=== PATIENT | female | born 1965 | race Hispanic/Latino ===

== ENCOUNTER 2016-11-27 18:44 | Inpatient (IN) | payer MEDICAID, MEDICARE ==
[2016-11-27 18:45] VITALS: BMI 18.2
[2016-11-27] MEDS ORDERED: Sodium Chloride 0.9% 1,000 ML IV ONE (18:58)
[2016-11-27] MEDS ORDERED: Sodium Chloride 0.9% 500 ML IV ONE (18:58)
[2016-11-27] MEDS ORDERED: Iohexol 240 (50 ml) PO ONE (18:59)
--- NOTE | 2016-11-27 18:59 | C.PDOC ---
History Of Present Illness 51-year-old female, PMHx includes Alcohol Abuse, presents to the emergency department with complaints of abdominal pain. Patient has a Hx of chronic abdominal pain, but states she has been experiencing Epigastric and RUQ abdominal pain for the past four days. Pain is intermittent in nature and non- radiating. Associated symptoms include nausea and non-bilious/non-bloody vomiting, resulting in her coming to the ED for further evaluation. Patient denies fevers, chills, chest pain, shortness of breath, diarrhea, or any other associated symptoms. No other complaints at this time. Chief Complaint (Nursing): Abdominal Pain History Per: Patient History/Exam Limitations: no limitations Onset/Duration Of Symptoms: Days Current Symptoms Are (Timing): Still Present Severity: Moderate Past Medical History Reviewed: Historical Data, Nursing Documentation, Vital Signs Vital Signs: Last Vital Signs Temp Pulse 80 11/27/16 23:30 Resp 16 11/27/16 23:30 BP 130/80 11/27/16 23:30 Pulse Ox 97 11/27/16 23:30 - Medical History PMH: Anxiety, Bipolar Disorder, Depression, Diverticulitis, Gastritis, Gastrointestinal Ulcer, GERD, Kidney Stones, Pancreatitis, Chronic Pain (+ Chronic lower back pain) Denies: Diabetes, Hepatitis, HIV, HTN, Chronic Kidney Disease, Seizures, Sexually Transmitted Disease Surgical History: Endoscopy (Colonoscopy), Tonsillectomy - [facility] Procedures DETOXIFICATION SERVICES FOR SUBSTANCE ABUSE TREATMENT (10/17/16) EXCISION OF STOMACH, ENDO, DIAGN (06/01/16) GROUP ZOOLOGY TECHNICAL OFFICER FOR SUBSTANCE ABUSE TREATMENT, PSYCHOEDUCATION (10/17/16) GROUP PSYCHOTHERAPY (01/26/16) INDIV ZOOLOGY TECHNICAL OFFICER FOR SUBSTANCE ABUSE TREATMENT, PSYCHOEDUCATION (10/17/16) INDIV ZOOLOGY TECHNICAL OFFICER FOR SUBSTANCE ABUSE, COGNITIVE BEHAVIORAL (10/17/16) INDIV PSYCHOTHERAPY FOR SUBSTANCE ABUSE TREATMENT, SUPPORT (10/17/16) INDIV PSYCHOTHERAPY FOR SUBSTANCE ABUSE, PSYCHOEDUCATION (10/17/16) INDIVIDUAL PSYCHOTHERAPY, SUPPORTIVE (01/26/16) INJECT/INFUSE NEC (04/10/15) MEDS MGMT FOR SUBSTANCE ABUSE TREATMENT, METHADONE MAINT (01/26/16) Family History: States: Unknown Family Hx - Social History Hx Tobacco Use: Yes Hx Alcohol Use: Yes Hx Substance Use: Yes - Immunization History Hx Tetanus Toxoid Vaccination: Yes Hx Influenza Vaccination: Yes Hx Pneumococcal Vaccination: Yes Review Of Systems Except As Marked, All Systems Reviewed And Found Negative. Constitutional: Negative for: Fever, Chills Cardiovascular: Negative for: Chest Pain, Palpitations Respiratory: Negative for: Shortness of Breath Gastrointestinal: Positive for: Nausea, Vomiting, Abdominal Pain. Negative for : Diarrhea Genitourinary: Negative for: Dysuria, Frequency Musculoskeletal: Negative for: Back Pain Physical Exam - Physical Exam Appears: Non-toxic, No Acute Distress Skin: Warm, Dry, No Rash Head: Atraumatic, Normacephalic Eye(s): bilateral: Normal Inspection, PERRL Nose: Normal Oral Mucosa: Moist Neck: Normal ROM Chest: Symmetrical Cardiovascular: Rhythm Regular Respiratory: Normal Breath Sounds, No Accessory Muscle Use Gastrointestinal/Abdominal: Tenderness (RIGHT UPPER QUADRANT), No Guarding, No Rebound, Other (enlarged liver) Back: No CVA Tenderness Extremity: Normal ROM Neurological/Psych: Oriented x3, Normal Speech ED Course And Treatment - Laboratory Results Result Diagrams: 11/27/16 19:15 11/27/16 19:15 Disposition Discussed With : Corwin Nayak Doctor Will See Patient In The: Hospital Counseled Patient/Family Regarding: Diagnosis - Disposition Disposition: HOSPITALIZED Disposition Time: 23:46 Condition: STABLE - POA Present On Arrival: None - Clinical Impression Clinical Impression: Upper abdominal pain, Alcohol abuse, Pancreatitis - Scribe Statement The provider has reviewed the documentation as recorded by the Kit Peck All medical record entries made by the Hebertibnahid were at my direction and personally dictated by me. I have reviewed the chart and agree that the record accurately reflects my personal performance of the history, physical exam, medical decision making, and the department course for this patient. I have also personally directed, reviewed, and agree with the discharge instructions and disposition.
[2016-11-27] MEDS ORDERED: Sodium Chloride 0.9% 1,000 ML ONE (19:14)
[2016-11-27] MEDS ORDERED: Iohexol 240 (50 ml) ONE (19:14)
[2016-11-27 19:24] LABS: BASO # 0.1 K/uL (0.0-0.2); EOS # 0.1 K/uL (0.0-0.7); EOS % 1.5 % (0.0-4.0); HEMATOCRIT 38.9 % (34.0-47.0); LYMPH # 1.1 K/uL (1.0-4.3); MEAN CELL VOLUME 96.5 fL (81.0-99.0); MEAN CORPUSCULAR HEMOGLOBIN 32.7 pg (27.0-31.0); MEAN CORPUSCULAR HGB CONC 33.9 g/dL (33.0-37.0); MEAN PLATELET VOLUME 8.5 fL (7.2-11.7); MONO # 0.6 K/uL (0.0-0.8); MONO % 7.2 % (0.0-10.0); RED CELL DISTRIBUTION WIDTH 14.2 % (11.5-14.5); WHITE BLOOD COUNT 7.7 K/uL (4.8-10.8)
[2016-11-27 19:33] LABS: CHLORIDE 95 mmol/L (98-107); POTASSIUM 2.8 mmol/L (3.6-5.2); SODIUM 141 mmol/L (132-148)
[2016-11-27 19:35] LABS: ALKALINE PHOSPHATASE 107 U/L (38-126); AST/SGOT 237 U/L (14-36); BILIRUBIN,TOTAL 0.6 mg/dL (0.2-1.3); CARBON DIOXIDE 27 mmol/L (22-30); GFR AFRICAN-AMERICAN > 60
[2016-11-27 19:36] LABS: ALB/GLOB RATIO 1.2 (1.0-2.1); ALT/SGPT 181 U/L (9-52); BLOOD UREA NITROGEN 11 mg/dL (7-17); CALCIUM 8.8 mg/dl (8.6-10.4); GLUCOSE,RANDOM 120 mg/dL (65-105); TOTAL PROTEIN 7.9 g/dL (6.3-8.3)
[2016-11-27 19:37] LABS: ALCOHOL SERUM 49 mg/dl (0-10)
[2016-11-27] MEDS ORDERED: Iodixanol 320 MG/ML 100 ML BOTTLE IV ONE (21:46)
[2016-11-27 22:20] LABS: RBC URINE < 1 /hpf (0-3); URINE BILIRUBIN NEGATIVE (NEGATIVE); URINE BLOOD NEGATIVE (NEGATIVE); URINE COLOR Yellow (YELLOW); URINE GLUCOSE (UA) NORMAL (Normal); URINE KETONE TRACE mg/dL (NEGATIVE); URINE LEUKOCYTE ESTERASE NEG Leu/uL (Negative); URINE PROTEIN NEGATIVE (NEGATIVE); WBC URINE 1 /hpf (0-5)
[2016-11-28] MEDS ORDERED: Potassium Chloride 20 mEq 100 ML IVPB ONE ×2 (00:13→11:04)
[2016-11-28] MEDS ORDERED: Potassium Chloride 20 mEq ER Tab PO STA ×2 (00:16→11:04)
[2016-11-28] MEDS ORDERED: HYDROmorphone 1 mg/ml ISec IVP PRN (00:49)
--- NOTE | 2016-11-28 01:02 | CP.PCM.HP ---
History of Present Illness - History of Present Illness History of Present Illness: CC: " I can't stop throwing up and my stomach hurts". 51 year old female with PMHx of alcohol and heroin abuse, chronic pancreatitis, depression presents with 4 day history of abdominal pain, nausea and vomiting. Patient reports 10 out of 10 pain, which does not radiate. Pain has been progressive over the past 4 days and intermittent. Pain is not related to food intake. She reports she has not been able to eat or drink anything for the past 4 days. She took "Protonix, Reglan, Pepcid and pain pill", which were prescribed during September admission with no relief. Patient has history of multiple admissions for pancreatitis, alcohol and opioid abuse. Last admitted for heroin and alcohol detox on 10/17/2016. Admits she drank heavily with her son on the night prior to admission. She reports consuming half a gallon of vodka between her and her son. She does feel she has significantly decreased her alcohol, heroin and tobacco intake since last discharge, but relapsed when after receiving bad news from her son. Admits to recent visit to [facility] where she was observed overnight for abdominal pain. Patient denies depressed mood, but admits to anxiety and feeling "overwhelmed". Admits to intermittent diarrhea, and goosebumps. Last episode of diarrhea was yesterday. No additional episodes. Denies chest pain, palpitations, SOB, fevers, headaches, dysuria, hematuria, hematochezia, hemoptysis. Denies SI/HI. PMHx:alcohol and heroin abuse, chronic pancreatitis, depression. Medications: Protonix, Reglan, Pepcid and "pain pill. Allergies: NKDA Surgeries: Adenoids Family Hx: mother with BCA, ovarian CA, colon CA. Grandmother with [place], colon CA. PMD: none, last seen at [facility]. Present on Admission - Present on Admission Any Indicators Present on Admission: No Review of Systems - Constitutional Constitutional: Chills, Weight Loss. absent: Fatigue, Fever, Weakness - EENT Eyes: absent: Blurred Vision, Change in Vision Ears: absent: Dizziness Nose/Mouth/Throat: absent: Nasal Congestion, Sore Throat - Cardiovascular Cardiovascular: absent: Chest Pain, Diaphoresis, Dyspnea, Palpitations, Pedal Edema - Respiratory Respiratory: absent: Cough, Dyspnea, Hemoptysis, Wheezing - Gastrointestinal Gastrointestinal: Abdominal Pain, Bloating, Constipation, Diarrhea, Nausea, Vomiting. absent: Coffee Ground Emesis, Hematemesis, Hematochezia, Melena - Genitourinary Genitourinary: absent: Change in Urinary Stream, Difficulty Urinating, Dysuria, Flank Pain, Hematuria - Musculoskeletal Musculoskeletal: absent: Back Pain, Numbness, Tingling - Integumentary Integumentary: Dry Skin. absent: Pruritus, Rash, Wounds - Neurological Neurological: absent: Dizziness, Numbness, Syncope, Tingling, Weakness - Psychiatric Psychiatric: Anxiety. absent: Depression - Endocrine Endocrine: absent: Fatigue, Palpitations Past Patient History - Infectious Disease Hx of Infectious Diseases: None - Past Medical History & Family History Past Medical History?: Yes - Past Social History Smoking Status: Heavy Smoker > 10 Cigarettes Daily - CARDIAC Hx Hypertension: No - PULMONARY Hx Tuberculosis: No - NEUROLOGICAL Hx Seizures: No - HEENT Hx HEENT Problems: No - RENAL Hx Chronic Kidney Disease: No Hx Kidney Stones: Yes - ENDOCRINE/METABOLIC Hx Endocrine Disorders: No - HEMATOLOGICAL/ONCOLOGICAL Hx Human Immunodeficiency Virus (HIV): No - INTEGUMENTARY Hx Dermatological Problems: No - MUSCULOSKELETAL/RHEUMATOLOGICAL Hx Back Pain: Yes (fracture x2) Hx Falls: No - GASTROINTESTINAL Hx Diverticulitis: Yes Hx Gastritis: Yes Hx Pancreatitis: Yes - GENITOURINARY/GYNECOLOGICAL Hx Sexually Transmitted Disorders: No - PSYCHIATRIC Hx Anxiety: Yes Hx Bipolar Disorder: Yes Hx Depression: Yes Hx Substance Use: Yes - SURGICAL HISTORY Hx Tonsillectomy: Yes - ANESTHESIA Hx Anesthesia: Yes Hx Anesthesia Reactions: No Hx Malignant Hyperthermia: No Meds Allergies/Adverse Reactions: Allergies Allergy/AdvReac Type Severity Reaction Status Date / Time No Known Allergies Allergy Verified 11/27/16 18:49 Physical Exam - Constitutional Appears: No Acute Distress - Head Exam Head Exam: NORMAL INSPECTION, NORMOCEPHALIC - Eye Exam Eye Exam: EOMI, Normal appearance, PERRL. absent: Scleral icterus - ENT Exam ENT Exam: Mucous Membranes Moist - Neck Exam Neck exam: Positive for: Full Rom, Normal Inspection - Respiratory Exam Respiratory Exam: Clear to Auscultation Bilateral, NORMAL BREATHING PATTERN. absent: Rhonchi, Wheezes - Cardiovascular Exam Cardiovascular Exam: REGULAR RHYTHM, +S1, +S2 - GI/Abdominal Exam GI & Abdominal Exam: Hyperactive Bowel Sounds, Soft, Tenderness. absent: Distended, Guarding - Extremities Exam Extremities exam: Positive for: full ROM, normal inspection. Negative for: pedal edema, tenderness Additional comments: No asterixis Minimal tremor - Back Exam Back exam: NORMAL INSPECTION. absent: CVA tenderness (L), CVA tenderness (R) - Neurological Exam Neurological exam: Alert, Oriented x3 - Psychiatric Exam Psychiatric exam: Anxious, Normal Affect, Normal Mood - Skin Skin Exam: Dry, Normal Color, Warm Results - Vital Signs Recent Vital Signs: Last Vital Signs Temp Pulse 80 11/27/16 23:30 Resp 16 11/27/16 23:30 BP 161/90 H 11/27/16 23:30 Pulse Ox 97 11/27/16 23:30 - Labs Result Diagrams: 11/27/16 19:15 11/27/16 19:15 Assessment & Plan (1) Abdominal pain Assessment and Plan: Patient with history of pancreatitis and alcohol/opioid abuse. Possible withdrawal component. Lipase on admission 390. Patient had EGD 05/2016 which showed hiatal hernia, gastritis and duodenitis. Will keep pt NPO except medications IV fluids- 1/2 NS with 40 mEq of KCl IVPB at 100 cc/hr Pain: IV Morphine 3mg IVP Q4H PRN Ativan 1mg IVP Q3H PRN f/u abd/pelv CT Status: Acute (2) Vomiting Assessment and Plan: Zofran 40 IVP Q6H PRN Replace electrolytes as needed f/u CMP, Mg and Phos in the AM. Status: Acute (3) Alcohol abuse Assessment and Plan: Psych consult- Dr. Siegel- help appreciated Thiamine IVP 100 mg PO daily Ativan 1 mg IVP Q3H PRN f/u recommendations Seizure precautions Aspiration precautions Withdrawal checks Q1H Status: Acute (4) Heroin abuse Assessment and Plan: Psych consult- Dr. Siegel- anibal appreciated Ativan 1 mg IVP Q3H PRN f/u recommendations Seizure precautions Aspiration precautions Withdrawal checks Q1H Status: Acute (5) Major depression Assessment and Plan: Psych consult- Dr. Siegel- anibal appreciated No current SI/HI Status: Acute (6) Tobacco abuse disorder Assessment and Plan: Nicoderm patch Status: Acute (7) Prophylactic measure Assessment and Plan: Protonix 40 mg IVP daily SCDs Status: Acute
[2016-11-28] MEDS ORDERED: Potassium Chloride 40 MEQ in Sodium Chloride 0.45% 1,000 ML IV SCH (01:30)
[2016-11-28] MEDS ORDERED: Thiamine 100 mg/ml Inj IV ONE (01:30)
[2016-11-28] MEDS: Morphine 4 MG/ML VIAL IVP PRN ×2 (01:50→07:51)
--- NOTE | 2016-11-28 07:58 | CP.PCM.PN ---
Addendum entered and electronically signed by Lilian Ngo DO 11/28/16 16:13: Added Clonidine patch for BP control. Diluadid increased to 2mg IVP Q6 hours prn severe pain Patient to be given Ativan taper Will be given diet when she is not vomiting. Original Note: <Lilian Ngo - Last Filed: 11/28/16 13:43> Subjective - Date & Time of Evaluation Date of Evaluation: 11/28/16 Time of Evaluation: 07:00 - Subjective Subjective: PGY [address] Wright: Patient seen and examined at bedside this morning. She states that she had 10/ 10 pain in her epigastric region. She said that she has vomited 3 times this morning. She reports that the pain meds we are giving are not helping. She denies headache, changes in vision, chest pain, palpitations, swelling/pain in the extremities, diarrhea/constipation, numbness or tingling. She was seen walking around the hallways with the IV pole. Objective - Vital Signs/Intake and Output Vital Signs (last 24 hours): Temp Pulse Resp BP Pulse Ox 80 16 161/90 H 97 11/27/16 23:30 11/27/16 23:30 11/27/16 23:30 11/27/16 23:30 - Medications Medications: Current Medications Potassium Chloride 40 meq/ (Sodium Chloride) 1,020 mls @ 100 mls/hr IV .[id number] JAN Last Admin: 11/28/16 01:49 Dose: 100 mls/hr Lorazepam (Ativan) 1 mg IVP Q3H PRN PRN Reason: Anxiety Last Admin: 11/28/16 07:51 Dose: 1 mg Morphine Sulfate (Morphine) 3 mg IVP Q4 PRN PRN Reason: Pain, severe (8-10) Last Admin: 11/28/16 07:51 Dose: 3 mg Nicotine (Nicoderm Cq) 1 patch TD DAILY JAN Ondansetron HCl (Zofran Inj) 4 mg IVP Q6 PRN PRN Reason: Nausea/Vomiting Last Admin: 11/28/16 01:25 Dose: 4 mg Pantoprazole Sodium (Protonix Inj) 40 mg IVP DAILY JAN Thiamine HCl (Vitamin B1 Inj) 100 mg IV DAILY JAN - Constitutional Appears: Non-toxic, In Acute Distress, Unkempt - Head Exam Head Exam: ATRAUMATIC, NORMAL INSPECTION - Eye Exam Eye Exam: EOMI, PERRL. absent: Scleral icterus Pupil Exam: NORMAL ACCOMODATION - ENT Exam ENT Exam: Mucous Membranes Dry - Respiratory Exam Respiratory Exam: Clear to Ausculation Bilateral, NORMAL BREATHING PATTERN. absent: Accessory Muscle Use, Chest Wall Tenderness, Rales, Rhonchi, Wheezes, Respiratory Distress - Cardiovascular Exam Cardiovascular Exam: REGULAR RHYTHM, +S1, +S2. absent: Murmur - GI/Abdominal Exam GI & Abdominal Exam: Soft, Tenderness, Normal Bowel Sounds. absent: Distended, Firm, Guarding Additional comments: epigastric - Extremities Exam Extremities Exam: Normal Inspection. absent: Calf Tenderness, Pedal Edema - Back Exam Back Exam: NORMAL INSPECTION. absent: CVA tenderness (L), CVA tenderness (R), paraspinal tenderness - Neurological Exam Neurological Exam: Alert, Awake, CN II-XII Intact, Normal Gait, Oriented x3 Neuro motor strength exam: Left Upper Extremity: 5, Right Upper Extremity: 5, Left Lower Extremity: 5, Right Lower Extremity: 5 - Psychiatric Exam Psychiatric exam: Normal Affect, Normal Mood - Skin Skin Exam: Dry, Intact, Normal Color, Warm. absent: Pallor Assessment and Plan - Assessment and Plan (Free Text) Assessment: Pancreatitis Assessment and Plan: Patient with history of pancreatitis and alcohol/opioid abuse. Possible withdrawal component. Lipase on admission 390. Patient had EGD 05/2016 which showed hiatal hernia, gastritis and duodenitis. Will keep NPO except medications IV fluids- 1/2 NS with 40 mEq of KCl IVPB at 200 cc/hr Pain: Dilaudid 1mg IVP Q4 hours prn severe pain f/u abd/pelv CT -> mild constipation, diffuse sigmoid colon wall thickening contains diverticulosis without evidence of diverticulitis. 1.9 cm lesion at tthe upper pole of the L kidney with higher density than simple fluid. Mild bilateral perinephric stranding. Status: Acute Vomiting Assessment and Plan: Zofran 40 IVP Q6H PRN Replace electrolytes as needed f/u CMP, Mg and Phos in the AM. Status: Acute Alcohol abuse Assessment and Plan: Psych consult- Dr. Siegel- help appreciated Ativan Taper Multivitamin/thiamine/folic acid f/u recommendations Seizure precautions Aspiration precautions Withdrawal checks Q1H with hx of substance abuse (last use of heroin before last admission over a month ago) Status: Acute Major depression Assessment and Plan: Psych consult- Dr. Siegel- help appreciated No current SI/HI Status: Acute Tobacco abuse disorder Assessment and Plan: Nicoderm patch Status: Acute Hypomagnesia Assessment and Plan: Mg 1.1 Replaced with 4 gm MagSulfate slowly f/u am Mg level Status: Acute Hypokalemia Assessment and Plan Assessment and Plan: K 2.8 on admission Replaced with IV and PO KCl potassium in fluid replacement f/u AM labs Status: Acute Prophylactic measure Assessment and Plan: Protonix 40 mg IVP daily SCDs NPO Status: Acute <MabelleahDamaris powersm - Last Filed: 11/29/16 10:14> Objective - Vital Signs/Intake and Output Vital Signs (last 24 hours): Temp Pulse Resp BP Pulse Ox 98.1 F 70 20 147/86 97 11/29/16 07:20 11/29/16 07:20 11/29/16 07:20 11/29/16 07:20 11/29/16 07:20 Intake and Output: 11/29/16 11/29/16 06:59 18:59 Intake Total 2660 Balance 2660 - Medications Medications: Current Medications Clonidine HCl (Catapres Tts1 0.1 Mg/24 Hr) 1 patch TD Q7D@1000 [facility] Last Admin: 11/28/16 16:49 Dose: 1 patch Hydromorphone HCl (Dilaudid) 2 mg IVP Q6 PRN PRN Reason: Pain, severe (8-10) Last Admin: 11/29/16 09:55 Dose: 2 mg Potassium Chloride 40 meq/ (Sodium Chloride) 1,020 mls @ 200 mls/hr IV .Q5H6M [facility] Last Admin: 11/29/16 08:18 Dose: 200 mls/hr Lorazepam (Ativan) 2 mg PO Q4 JAN PRN Reason: Taper Stop: 12/03/16 19:59 Last Admin: 11/29/16 08:16 Dose: 2 mg Multivitamins (Hexavitamin) 1 tab PO DAILY JAN Nicotine (Nicoderm Cq) 1 patch TD DAILY [facility] Last Admin: 11/29/16 09:57 Dose: 1 patch Ondansetron HCl (Zofran Inj) 4 mg IVP Q6 PRN PRN Reason: Nausea/Vomiting Last Admin: 11/28/16 09:05 Dose: 4 mg Pantoprazole Sodium (Protonix Inj) 40 mg IVP DAILY [facility] Last Admin: 11/29/16 09:56 Dose: 40 mg Thiamine HCl (Vitamin B1 Inj) 100 mg IV DAILY [facility] Last Admin: 11/29/16 09:56 Dose: 100 mg - Labs Labs: 11/29/16 07:04 11/29/16 07:04 PT 10.6 SECONDS (9.7-12.2) 11/28/16 11:58 INR 1.0 11/28/16 11:58 APTT 30 SECONDS (21-34) 11/28/16 11:58 Attending/Attestation - Attestation I have personally seen and examined this patient.: Yes I have fully participated in the care of the patient.: Yes I have reviewed all pertinent clinical information, including history, physical exam and plan: Yes Notes (Text): Patient with known history of recurrent ETOH induced pancreatitis, again admitted for the same; Reporting intractable vomiting, unable to keep down PO intake including meds; also severe epigastric pain, mild/moderate tenderness on exam; asking for more potent pain meds; started dilaudid, increased to 2 mg IV q6h prn; Clinically consistent with pancreatitis despite only modest elevation of lipase; Opiate withdrawal possible with positive opiates on Utox although patient reporting using heroin well over a month ago (before last admission); -Continue aggressive IVF -pain meds, reglan for nausea -clonidine patch for htn (acute in the setting of pain and vomiting) -ativan taper for impending ETOH withdrawal 11/29/16 10:07
[2016-11-28] MEDS: Thiamine 100 mg/ml Inj IV SCH (09:05)
--- NOTE | 2016-11-28 11:20 | CT ---
PROCEDURE: CT Abdomen and Pelvis with contrast HISTORY: abd pain COMPARISON: Comparison is made to the previous study dated 10/13/2016 TECHNIQUE: Contrast dose: 100 mL Visipaque 320 Radiation dose: Total exam DLP = 243.43 mGy-cm. FINDINGS: LOWER THORAX: Small nodular opacities are seen at the left lower lobe may represent mild infectious process. The heart is normal in size. No evidence of pleural effusion. LIVER: The liver is mildly to moderately enlarged. GALLBLADDER AND BILE DUCTS: Gallbladder wall thickening is also noted. The gallbladder is partially contracted. The biliary tree is not dilated. PANCREAS: No CT evidence of pancreatitis. SPLEEN: Unremarkable. ADRENALS: Unremarkable. No mass. KIDNEYS AND URETERS: Again seen is 2 indeterminate 1.9 lesion at the upper pole of the left kidney. The kidneys enhance symmetrically otherwise without evidence of hydronephrosis. Mild bilateral perinephric stranding seen may be due to infectious process. VASCULATURE: Unremarkable. No aortic aneurysm. BOWEL: Mild constipation noted. Questionable right colon wall thickening versus incomplete distention. There are scattered colonic diverticulosis. Diffuse wall thickening of the sigmoid colon is also noted. APPENDIX: No CT evidence of appendicitis. PERITONEUM: Diffuse soft tissue edema seen. . No free fluid. No free air. LYMPH NODES: Unremarkable. No enlarged lymph nodes. BLADDER: Unremarkable. REPRODUCTIVE: Unremarkable. BONES: No acute fracture. Moderate degenerative changes at the lower spine. OTHER FINDINGS: None. IMPRESSION: Partially contracted gallbladder demonstrates diffuse wall thickening. No definite CT evidence of cholecystitis. Mild constipation. Diffuse sigmoid colon wall thickening contains diverticulosis without definite evidence of diverticulitis. Suspicious for right colon wall thickening versus incomplete distention. Re- demonstration of 1.9 centimeter lesion at the upper pole of the left kidney with density higher than simple fluid. Further assessment by dedicated CT or MRI may be obtained. Mild bilateral perinephric stranding. Correlate clinically for possible infectious/ inflammatory process. Preliminary report was submitted by the virtual Radiology .
[2016-11-28] MEDS: HYDROmorphone 1 mg/ml ISec IVP PRN ×2 (11:44→15:47)
[2016-11-28 12:18] LABS: BASO # 0.1 K/uL (0.0-0.2); BASO % 0.7 % (0.0-2.0); EOS % 0.4 % (0.0-4.0); HEMATOCRIT 38.5 % (34.0-47.0); LYMPH # 0.7 K/uL (1.0-4.3); LYMPH % 8.6 % (20.0-40.0); MEAN CELL VOLUME 97.9 fL (81.0-99.0); MEAN CORPUSCULAR HEMOGLOBIN 32.6 pg (27.0-31.0); MEAN CORPUSCULAR HGB CONC 33.3 g/dL (33.0-37.0); MEAN PLATELET VOLUME 9.3 fL (7.2-11.7); MONO # 0.7 K/uL (0.0-0.8); MONO % 8.3 % (0.0-10.0); PLATELET COUNT 242 K/uL (130-400); RED CELL DISTRIBUTION WIDTH 13.8 % (11.5-14.5); WHITE BLOOD COUNT 7.9 K/uL (4.8-10.8)
[2016-11-28 12:24] LABS: CHLORIDE 94 mmol/L (98-107); POTASSIUM 3.1 mmol/L (3.6-5.2); SODIUM 135 mmol/L (132-148)
[2016-11-28 12:26] LABS: ALB/GLOB RATIO 1.2 (1.0-2.1); ALKALINE PHOSPHATASE 97 U/L (38-126); ALT/SGPT 131 U/L (9-52); AST/SGOT 126 U/L (14-36); BLOOD UREA NITROGEN 6 mg/dL (7-17); CARBON DIOXIDE 23 mmol/L (22-30); GFR AFRICAN-AMERICAN > 60
[2016-11-28 12:27] LABS: CALCIUM 8.3 mg/dl (8.6-10.4); GLUCOSE,RANDOM 127 mg/dL (65-105); MAGNESIUM 1.1 mg/dL (1.6-2.3); PHOSPHOROUS 2.3 mg/dL (2.5-4.5)
[2016-11-28 12:49] LABS: BASOPHIL 2 % (0-2); NEUTROPHIL 75 % (50-75); REACTIVE LYMPHOCYTES 1 % (0-0); TOTAL CELLS COUNTED 100
[2016-11-28] MEDS: Potassium Chloride 40 MEQ in Sodium Chloride 0.45% 1,000 ML IV SCH ×3 (13:46→22:02)
[2016-11-28 16:10] VITALS: RESP 20
[2016-11-28] MEDS ORDERED: HYDROmorphone 1 mg/ml ISec IVP STA (16:10)
--- NOTE | 2016-11-28 16:13 | CARD ---
APPROVED REPORT EKG Measurement Heart [id number] <Conclusion> Sinus rhythm with occasional premature ventricular complexes Prolonged QT Abnormal ECG
[2016-11-29] MEDS: Potassium Chloride 40 MEQ in Sodium Chloride 0.45% 1,000 ML IV SCH ×5 (03:24→23:23)
[2016-11-29 07:17] LABS: BASO % 0.5 % (0.0-2.0); EOS % 0.4 % (0.0-4.0); HEMATOCRIT 38.5 % (34.0-47.0); LYMPH # 0.9 K/uL (1.0-4.3); LYMPH % 9.6 % (20.0-40.0); MEAN CELL VOLUME 97.1 fL (81.0-99.0); MEAN CORPUSCULAR HEMOGLOBIN 32.7 pg (27.0-31.0); MEAN CORPUSCULAR HGB CONC 33.7 g/dL (33.0-37.0); MEAN PLATELET VOLUME 8.6 fL (7.2-11.7); MONO # 0.5 K/uL (0.0-0.8); PLATELET COUNT 223 K/uL (130-400); RED CELL DISTRIBUTION WIDTH 13.4 % (11.5-14.5)
[2016-11-29 07:34] LABS: CHLORIDE 98 mmol/L (98-107)
[2016-11-29 07:35] LABS: POTASSIUM 4.5 mmol/L (3.6-5.2); SODIUM 134 mmol/L (132-148)
[2016-11-29 07:37] LABS: ALB/GLOB RATIO 1.3 (1.0-2.1); ALKALINE PHOSPHATASE 85 U/L (38-126); ALT/SGPT 123 U/L (9-52); AST/SGOT 130 U/L (14-36); BILIRUBIN,TOTAL 0.9 mg/dL (0.2-1.3); BLOOD UREA NITROGEN 5 mg/dL (7-17); CARBON DIOXIDE 22 mmol/L (22-30); GFR AFRICAN-AMERICAN > 60; TOTAL PROTEIN 6.5 g/dL (6.3-8.3)
[2016-11-29 07:38] LABS: CALCIUM 8.4 mg/dl (8.6-10.4); GLUCOSE,RANDOM 112 mg/dL (65-105); MAGNESIUM 1.8 mg/dL (1.6-2.3); PHOSPHOROUS 2.6 mg/dL (2.5-4.5)
[2016-11-29] MEDS: Thiamine 100 mg/ml Inj IV SCH (09:56)
[2016-11-29 09:59] LABS: EOSINOPHIL 1 % (0-4); LARGE PLATELETS PRESENT; NEUTROPHIL 79 % (50-75); TOTAL CELLS COUNTED 100
[2016-11-29] MEDS: Multiple Vitamins Tab PO SCH (10:15)
[2016-11-29] MEDS: oxyCODONE 20 mg ER Tab (oxyCONTIN) PO SCH ×2 (11:58→21:11)
--- NOTE | 2016-11-29 14:16 | PCM.PSYCH ---
Initial Psychiatric Evaluation - Initial Psychiatric Evaluation Type of Admission: Voluntary Legal Status: Capacity Chief Complaint (in patient's own words): "The pain is bad" History of Present Illness and Precipitating Events: Pt was seen, chart reviewed and case discussed. Pt is a 51 yo F with history of alcohol use disorder, opioid use disorder, depressive disorder, and a medical history of chronic pancreatitis and gastric ulcer. Pt was admitted for pancreatitis and GI pain and consult was requested for alcohol dependence. Pt is well known to the service, last admission was 10/17 for alcohol and heroin detox. Pt has a 28 yo son, a boyfriend, and is currently living between a friend's house, her son's house and a [place] [facility]. 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 Pt states she started drinking at 12 years old and drinking heavily in her 20's. Pt reports drinking 3-4 pints of vodka prior to most recent detox, and was clean for 4 weeks following detox. Pt states she relapsed after her son received a diagnosis of HIV. States she feels overwhelmed, tired and hit with everything all at once. Pt complains of severe epigastric abdominal pain, nausea, and vomiting that began 4 days ago. Pt states she has not slept in 4 days secondary to severe pain. Symptoms temporarily improve with ativan and dilaudid, however states meds last for about one hour. Denies suidical ideation, homicidal ideation and hallucinations . Past Psych Hx: Alcohol use disorder, opioid use disorder, depressive disorder- unspecified Family Psych Hx: Mother alcoholic PMHx: Chronic pancreatitis, GERD, Gastric ulcers Legal problems: denies Current Medications: Active Medications Generic Name Dose Route Start Last Admin Trade Name Freq PRN Reason Stop Dose Admin Clonidine HCl 1 patch 11/28/16 16:45 11/28/16 16:49 Catapres Tts1 0.1 Mg/24 Hr TD 1 patch Q7D@1000 JAN Administration Gabapentin 100 mg 11/29/16 14:00 Neurontin PO TID JAN Hydromorphone HCl 2 mg 11/28/16 20:00 11/29/16 09:55 Dilaudid IVP 2 mg Q6 PRN Administration Pain, severe (8-10) Potassium Chloride 40 meq/ 1,020 mls @ 100 mls/hr 11/29/16 11:11 11/29/16 12:32 Sodium Chloride IV 100 mls/hr .[id number] JAN Administration Lorazepam 2 mg 11/28/16 20:00 11/29/16 11:58 Ativan PO 12/03/16 19:59 2 mg Q4 JAN Administration Taper Metoclopramide HCl 10 mg 11/29/16 10:38 Reglan IVP Q12 PRN Nausea/Vomiting Multivitamins 1 tab 11/29/16 10:00 11/29/16 10:15 Hexavitamin PO Not Given DAILY JAN Nicotine 1 patch 11/28/16 10:00 11/29/16 09:57 Nicoderm Cq TD 1 patch DAILY JAN Administration Ondansetron HCl 4 mg 11/28/16 00:49 11/28/16 09:05 Zofran Inj IVP 4 mg Q6 PRN Administration Nausea/Vomiting Oxycodone HCl 20 mg 11/29/16 10:45 11/29/16 11:58 Oxycontin Extended Release Tab PO 20 mg Q12 JAN Administration Pantoprazole Sodium 40 mg 11/28/16 10:00 11/29/16 09:56 Protonix Inj IVP 40 mg DAILY JAN Administration Thiamine HCl 100 mg 11/28/16 10:00 11/29/16 09:56 Vitamin B1 Inj IV 100 mg DAILY JAN Administration Past Psychiatric History - Past Psychiatric History Previous Treatment History: Intensive Outpatient Pertinent Medical Hx (Current Medical&Sleep Prob, Allergies): Allergies Allergy/AdvReac Type Severity Reaction Status Date / Time No Known Allergies Allergy Verified 11/27/16 18:49 Escitalopram [Lexapro] 10 mg PO DAILY #30 tab 10/20/16 Gabapentin [Neurontin] 400 mg PO TID #90 cap 10/20/16 Multivitamins [Hexavitamin] 1 tab PO DAILY #30 tab 10/20/16 Pantoprazole [Protonix EC Tab] 20 mg PO DAILY #30 ect 10/20/16 QUEtiapine [Seroquel] 100 mg PO HS #30 tab 10/20/16 traZODone [Desyrel] 50 mg PO HS PRN #30 tab 10/20/16 Cyclobenzaprine [Cyclobenzaprine HCl] 10 mg PO BID PRN #6 tab 11/16/16 Naproxen [Naprosyn Tab] 375 mg PO Q12 PRN #20 tab 11/16/16 Review of Systems - Gastrointestinal Gastrointestinal: As Per HPI - Neurological Neurological: UNREMARKABLE - Psychiatric Psychiatric: Abnormal Sleep Pattern, Depression. absent: Auditory Hallucinations, Homicidal Ideation, Suicidal Ideation, Visual Hallucinations, Tactile Hallucinations Mental Status Examination - Personal Presentation Personal Presentation: Looks stated age - Affect Affect: Broad - Motor Activity Motor Activity: Calm - Reliability in Providing Information Reliability in Providing Information: Good - Speech Speech: Organized - Mood Mood: Anxious - Formal Thought Process Formal Thought Process: No Impairment - Cognitive Functions Orientation: Person, Place, Situation, Time Sensorium: Alert Attention/Concentration: Attentive Estimate of Intelligence: Average Judgement: Intact, as evidence by: Insight regarding need for hospitalization Memory: Recent intact, as evidence by: Ability to recall events of the day, Remote intact, as evidenced by: Abilit to recall sig. life events - Risk Risk: Withdrawal, Diminished functioning - Strength & Assets Inventory Strength & Assets Inventory: Cooperative - Limitations Limitations: Other (unemployment, unstable living arrangement) DSM 5 DX - DSM 5 DSM 5 Diagnosis: Primary: Alcohol withdrawal Alcohol use disorder- severe Depressive disorder-unspecified - Recommended/Plan of Treatment Treatment Recommendations and Plan of Treatment: Alcohol: -Ativan taper -start Seroquel qHS -Start Gabapentin 100mg PO TID -[place], CBT -Refer to rehab program Depressive disorder-unspecified -attend groups and activities -Supportive psychotherapy -[place], CBT 31 min
--- NOTE | 2016-11-29 15:55 | CP.PCM.PN ---
<Lilian Ngo - Last Filed: 11/29/16 15:44> Subjective - Date & Time of Evaluation Date of Evaluation: 11/29/16 Time of Evaluation: 08:50 - Subjective Subjective: PGY [address] Landeros: Patient seen and examined at bedside this morning. She states that pain in her epigastric region is still present and severe but that it has improved with pain meds. She said that she vomited a few times last year. She was requesting more of a diet. She has been walking around the hallways. She denies headache, changes in vision, chest pain, palpitations, swelling/pain in the extremities, diarrhea/constipation, numbness or tingling. Objective - Vital Signs/Intake and Output Vital Signs (last 24 hours): Temp Pulse Resp BP Pulse Ox 98.1 F 70 20 147/86 97 11/29/16 07:20 11/29/16 13:57 11/29/16 07:20 11/29/16 07:20 11/29/16 07:20 Intake and Output: 11/29/16 11/29/16 06:59 18:59 Intake Total 2660 1040 Balance 2660 1040 - Medications Medications: Current Medications Clonidine HCl (Catapres Tts1 0.1 Mg/24 Hr) 1 patch TD Q7D@1000 [facility] Last Admin: 11/28/16 16:49 Dose: 1 patch Gabapentin (Neurontin) 100 mg PO TID [facility] Hydromorphone HCl (Dilaudid) 2 mg IVP Q6 PRN PRN Reason: Pain, severe (8-10) Last Admin: 11/29/16 09:55 Dose: 2 mg Potassium Chloride 40 meq/ (Sodium Chloride) 1,020 mls @ 100 mls/hr IV .[id number] [facility] Last Admin: 11/29/16 12:32 Dose: 100 mls/hr Lorazepam (Ativan) 2 mg PO Q4 JAN PRN Reason: Taper Stop: 12/03/16 19:59 Last Admin: 11/29/16 11:58 Dose: 2 mg Metoclopramide HCl (Reglan) 10 mg IVP Q12 PRN PRN Reason: Nausea/Vomiting Multivitamins (Hexavitamin) 1 tab PO DAILY [facility] Last Admin: 11/29/16 10:15 Dose: Not Given Nicotine (Nicoderm Cq) 1 patch TD DAILY [facility] Last Admin: 11/29/16 09:57 Dose: 1 patch Ondansetron HCl (Zofran Inj) 4 mg IVP Q6 PRN PRN Reason: Nausea/Vomiting Last Admin: 11/28/16 09:05 Dose: 4 mg Oxycodone HCl (Oxycontin Extended Release Tab) 20 mg PO Q12 [facility] Last Admin: 11/29/16 11:58 Dose: 20 mg Pantoprazole Sodium (Protonix Inj) 40 mg IVP DAILY [facility] Last Admin: 11/29/16 09:56 Dose: 40 mg Thiamine HCl (Vitamin B1 Inj) 100 mg IV DAILY [facility] Last Admin: 11/29/16 09:56 Dose: 100 mg - Labs Labs: 11/29/16 07:04 11/29/16 07:04 PT 10.6 SECONDS (9.7-12.2) 11/28/16 11:58 INR 1.0 11/28/16 11:58 APTT 30 SECONDS (21-34) 11/28/16 11:58 - Constitutional Appears: Non-toxic, No Acute Distress - Head Exam Head Exam: absent: ATRAUMATIC, NORMAL INSPECTION - Eye Exam Eye Exam: EOMI, Normal appearance, PERRL Pupil Exam: NORMAL ACCOMODATION - ENT Exam ENT Exam: Mucous Membranes Moist - Respiratory Exam Respiratory Exam: Clear to Ausculation Bilateral, NORMAL BREATHING PATTERN. absent: Accessory Muscle Use, Chest Wall Tenderness, Rales, Rhonchi, Wheezes, Respiratory Distress - Cardiovascular Exam Cardiovascular Exam: REGULAR RHYTHM, +S1, +S2. absent: Murmur - GI/Abdominal Exam GI & Abdominal Exam: Soft, Tenderness, Normal Bowel Sounds (eipgastric more severe, generalized). absent: Distended, Firm, Guarding - Extremities Exam Extremities Exam: Normal Inspection. absent: Calf Tenderness, Pedal Edema - Back Exam Back Exam: NORMAL INSPECTION. absent: CVA tenderness (L), CVA tenderness (R), paraspinal tenderness - Neurological Exam Neurological Exam: Alert, Awake, Oriented x3 Neuro motor strength exam: Left Upper Extremity: 5, Right Upper Extremity: 5, Left Lower Extremity: 5, Right Lower Extremity: 5 - Psychiatric Exam Psychiatric exam: Normal Affect, Normal Mood - Skin Skin Exam: Dry, Normal Color, Warm. absent: Erythema Assessment and Plan - Assessment and Plan (Free Text) Assessment: Pancreatitis Assessment and Plan: Improving Patient with history of pancreatitis and alcohol/opioid abuse. Possible withdrawal component. Pain: Dilaudid 2mg IVP Q4 hours prn severe pain Added Oxycodone 20mg PO Q12 JAN Lipase on admission 390, improving Patient had EGD 05/2016 which showed hiatal hernia, gastritis and duodenitis. IV fluids- 1/2 NS with 40 mEq of KCl IVPB at 100 cc/hr f/u abd/pelv CT -> mild constipation, diffuse sigmoid colon wall thickening contains diverticulosis without evidence of diverticulitis. 1.9 cm lesion at the upper pole of the L kidney with higher density than simple fluid. Mild bilateral perinephric stranding. Now on full regular diet f/u am labs Status: Acute Vomiting Assessment and Plan: Present but improving Patient not tolerated Zofran 40 IVP Q6H PRN Reglan 10mg IVP prn (meds can be alternated) Status: Acute Alcohol abuse Assessment and Plan: Ativan Taper Multivitamin/thiamine/folic acid Seizure precautions Aspiration precautions Withdrawal checks Q1H with hx of substance abuse (last use of heroin before last admission over a month ago) Status: Acute Major depression Assessment and Plan: Psych consult- Dr. Siegel- help appreciated No current SI/HI Gabapentin 100mg TID JAN Status: Acute Tobacco abuse disorder Assessment and Plan: Nicoderm patch Status: Acute Hypomagnesia Assessment and Plan: Resolved Status: Acute Hypokalemia Assessment and Plan: Resolved Status: Acute Prophylactic measure Assessment and Plan: Protonix 40 mg IVP daily SCDs Full regular diet Status: Acute <Sherley Landeros V - Last Filed: 12/01/16 18:40> Objective - Vital Signs/Intake and Output Vital Signs (last 24 hours): Temp Pulse Resp BP Pulse Ox 98.1 F 62 20 116/73 95 12/01/16 07:29 12/01/16 07:29 12/01/16 07:29 12/01/16 07:29 12/01/16 07:29 Intake and Output: 12/01/16 12/01/16 06:59 18:59 Intake Total 840 580 Output Total 600 Balance 240 580 - Labs Labs: 12/01/16 07:47 12/01/16 07:47 PT 10.6 SECONDS (9.7-12.2) 11/28/16 11:58 INR 1.0 11/28/16 11:58 APTT 30 SECONDS (21-34) 11/28/16 11:58 Attending/Attestation - Attestation I have personally seen and examined this patient.: Yes I have fully participated in the care of the patient.: Yes I have reviewed all pertinent clinical information, including history, physical exam and plan: Yes Notes (Text): This is late computer entry for 11/29/16. Patient seen, examined and case discussed with day-resident. Patient seen at bedside with the resident. Patient came for abdominal pain suspecting for pancreatitis, incited by relapse for alcohol use secondary to son revealing medical hx of the patient and upsetting her. Per patient, she is actually started alcoholic anonymous, had a sponsor but she relapsed and reports she has alot of pain at bedside. Patient asking for dilaudid at bedside ; but patient appears comfortable at bedside, talking comfortable. Patient advanced to regular diet, and is requesting food at bedside. Patient started on oxycodone ER 20mg PO Q 12hours; and discussed with patient she will need to follow-up with pain management doctor, because the Dilaudid will only cause immediate relief and she needs medication that calm her pain overtime. per signout with colleague, patient has required methadone taper given her narcotic abuse. Assessment/Plan Abdominal Pain Patient with history of pancreatitis and alcohol/opioid abuse. Possible withdrawal component. Pain: Dilaudid 2mg IVP Q4 hours prn severe pain Started on Oxycodone ER 20mg PO Q12 JAN in attempt to taper her off Dilaudid Lipase on admission 390, improving; patient clinically asking for a diet and does not appear in acute distress Patient had EGD 05/2016 which showed hiatal hernia, gastritis and duodenitis. IV fluids- 1/2 NS with 40 mEq of KCl IVPB at 100 cc/hr abd/pelv CT w PO and IV contrast (11/28/16): partially contracted gallbladder demonstrates diffuse wall thickening. No definite CT evidence of cholecystitis. Mild constipation. Diffuse sigmoid colon wall thickening contains diverticulosis without definite evidence of diverticulitis. suspicious ofr right colon wall thickening versus incomplete distention. 1.9cm lesion of the upper pole of left kidney. mild bilateral perinephric stranding. No Ct evidence of pancreatitis. Diet advanced as tolerated to regular diet f/u am labs Status: Acute Vomiting Assessment and Plan: Present but improving; less frequent Zofran 40 IVP Q6H PRN nausea start Reglan 10mg IVP Q 6hours prn nausea (meds can be alternated to help improve patient's nausea and vomitting) Status: Acute Alcohol abuse Assessment and Plan: Ativan Taper per [facility] protocol Multivitamin/thiamine/folic acid Seizure precautions Aspiration precautions Withdrawal checks Q1H with hx of substance abuse (last use of heroin before last admission over a month ago) Status: Acute Narcotic dependence Assessment and Plan: Attempt to taper off IV Dilaudid Started on Oxycodone ER 20mg PO Q 12hours Will check [place] [employer] regarding narcotic prescription Major depression Assessment and Plan: Psych consult- Dr. Siegel- help appreciated No current SI/HI Gabapentin 100mg TID JAN Status: Acute Tobacco abuse disorder Assessment and Plan: Nicoderm patch Status: Acute Hypomagnesia Assessment and Plan: Resolved Status: Acute Hypokalemia Assessment and Plan: Resolved Status: Acute Prophylactic measure Assessment and Plan: Protonix 40 mg IVP daily for GI ppx SCDs Full regular diet Ambulatory On IV fluids Status: Acute
[2016-11-30] MEDS: Multiple Vitamins Tab PO SCH (09:58)
[2016-11-30] MEDS: Thiamine 100 mg/ml Inj IV SCH (09:59)
[2016-11-30] MEDS: oxyCODONE 20 mg ER Tab (oxyCONTIN) PO SCH ×2 (10:00→22:53)
[2016-11-30 11:50] LABS: BASO % 0.5 % (0.0-2.0); EOS # 0.1 K/uL (0.0-0.7); EOS % 1.3 % (0.0-4.0); HEMATOCRIT 40.3 % (34.0-47.0); LYMPH # 1.4 K/uL (1.0-4.3); LYMPH % 16.9 % (20.0-40.0); MEAN CORPUSCULAR HEMOGLOBIN 32.4 pg (27.0-31.0); MEAN PLATELET VOLUME 9.3 fL (7.2-11.7); MONO # 0.9 K/uL (0.0-0.8); MONO % 11.3 % (0.0-10.0); RED CELL DISTRIBUTION WIDTH 13.6 % (11.5-14.5)
[2016-11-30 11:59] LABS: CHLORIDE 95 mmol/L (98-107); POTASSIUM 4.5 mmol/L (3.6-5.2); SODIUM 134 mmol/L (132-148)
[2016-11-30 12:01] LABS: BILIRUBIN,TOTAL 0.4 mg/dL (0.2-1.3); CARBON DIOXIDE 25 mmol/L (22-30); GFR AFRICAN-AMERICAN > 60
[2016-11-30 12:02] LABS: ALB/GLOB RATIO 1.2 (1.0-2.1); ALKALINE PHOSPHATASE 86 U/L (38-126); ALT/SGPT 138 U/L (9-52); AST/SGOT 126 U/L (14-36); BLOOD UREA NITROGEN 14 mg/dL (7-17); CALCIUM 9.3 mg/dl (8.6-10.4); GLUCOSE,RANDOM 133 mg/dL (65-105); MAGNESIUM 1.4 mg/dL (1.6-2.3); PHOSPHOROUS 3.7 mg/dL (2.5-4.5); TOTAL PROTEIN 6.9 g/dL (6.3-8.3)
--- NOTE | 2016-11-30 12:48 | CP.PCM.PN ---
<HuberLilian - Last Filed: 11/30/16 12:45> Subjective - Date & Time of Evaluation Date of Evaluation: 11/30/16 Time of Evaluation: 07:20 - Subjective Subjective: PGY [address] Landeros: Patient seen and examined at bedside this morning. She states that pain in her epigastric region is still present and severe but that it has improved with pain meds. She is requesting for more pains med starting that the dilaudid she is getting now wears off after one hour.She said that she vomited a few times last night but this is also improving. She is now tolerating a full diet She was able to eat breakfast this morning. She has been walking around the hallways. She denies headache, changes in vision, chest pain, palpitations, swelling/pain in the extremities, diarrhea/constipation, numbness or tingling. Objective - Vital Signs/Intake and Output Vital Signs (last 24 hours): Temp Pulse Resp BP Pulse Ox 97.9 F 74 20 147/95 H 96 11/30/16 07:50 11/30/16 07:50 11/30/16 07:50 11/30/16 07:50 11/30/16 07:50 Intake and Output: 11/30/16 11/30/16 06:59 18:59 Intake Total 2340 Output Total 800 Balance 1540 - Medications Medications: Current Medications Clonidine HCl (Catapres Tts1 0.1 Mg/24 Hr) 1 patch TD Q7D@1000 [facility] Last Admin: 11/28/16 16:49 Dose: 1 patch Docusate Sodium (Colace) 100 mg PO BID [facility] Last Admin: 11/30/16 12:41 Dose: 100 mg Gabapentin (Neurontin) 100 mg PO TID [facility] Last Admin: 11/30/16 09:59 Dose: 100 mg Hydromorphone HCl (Dilaudid) 2 mg IVP Q6 PRN PRN Reason: Pain, severe (8-10) Last Admin: 11/30/16 12:42 Dose: 2 mg Magnesium Sulfate/Dextrose (Magnesium Sulfate 1 Gm/100 Ml D5w) 100 mls @ 300 mls/hr IVPB Q30M [facility] Stop: 11/30/16 13:34 Lorazepam (Ativan) 1 mg PO Q8 JAN PRN Reason: Taper Stop: 12/05/16 13:59 Metoclopramide HCl (Reglan) 10 mg IVP Q12 PRN PRN Reason: Nausea/Vomiting Multivitamins (Hexavitamin) 1 tab PO DAILY [facility] Last Admin: 11/30/16 09:58 Dose: 1 tab Nicotine (Nicoderm Cq) 1 patch TD DAILY [facility] Last Admin: 11/30/16 09:58 Dose: 1 patch Ondansetron HCl (Zofran Inj) 4 mg IVP Q6 PRN PRN Reason: Nausea/Vomiting Last Admin: 11/28/16 09:05 Dose: 4 mg Oxycodone HCl (Oxycontin Extended Release Tab) 20 mg PO Q12 [facility] Last Admin: 11/30/16 10:00 Dose: 20 mg Pantoprazole Sodium (Protonix Inj) 40 mg IVP DAILY [facility] Last Admin: 11/30/16 09:58 Dose: 40 mg Thiamine HCl (Vitamin B1 Inj) 100 mg IV DAILY [facility] Last Admin: 11/30/16 09:59 Dose: 100 mg - Labs Labs: 11/30/16 11:39 11/30/16 11:39 PT 10.6 SECONDS (9.7-12.2) 11/28/16 11:58 INR 1.0 11/28/16 11:58 APTT 30 SECONDS (21-34) 11/28/16 11:58 - Constitutional Appears: Non-toxic, No Acute Distress, Unkempt - Head Exam Head Exam: ATRAUMATIC, NORMAL INSPECTION, NORMOCEPHALIC - Eye Exam Eye Exam: EOMI, Normal appearance, PERRL Pupil Exam: NORMAL ACCOMODATION - ENT Exam ENT Exam: Mucous Membranes Moist - Neck Exam Neck Exam: Full ROM - Respiratory Exam Respiratory Exam: Clear to Ausculation Bilateral, NORMAL BREATHING PATTERN. absent: Respiratory Distress - Cardiovascular Exam Cardiovascular Exam: REGULAR RHYTHM, +S1, +S2 - GI/Abdominal Exam GI & Abdominal Exam: Soft, Normal Bowel Sounds. absent: Distended, Firm, Guarding, Tenderness Additional comments: Pt states she has a lot of abdominal pain but non tender with light and deep palpation on exam - Extremities Exam Extremities Exam: Normal Inspection. absent: Calf Tenderness, Pedal Edema - Back Exam Back Exam: NORMAL INSPECTION. absent: CVA tenderness (L), CVA tenderness (R), paraspinal tenderness - Neurological Exam Neurological Exam: Alert, Awake, CN II-XII Intact, Oriented x3 Neuro motor strength exam: Left Upper Extremity: 5, Right Upper Extremity: 5, Left Lower Extremity: 5, Right Lower Extremity: 5 - Psychiatric Exam Psychiatric exam: Anxious, Normal Affect, Normal Mood - Skin Skin Exam: Dry, Intact, Normal Color, Warm Assessment and Plan - Assessment and Plan (Free Text) Assessment: Pancreatitis Assessment and Plan: Improving Patient with history of pancreatitis and alcohol/opioid abuse. Possible withdrawal component. Pain: Dilaudid 1mg IVP Q5 hours prn severe pain Oxycodone 20mg PO Q12 JAN Lipase on admission 390, improving Patient had EGD 05/2016 which showed hiatal hernia, gastritis and duodenitis. IV fluids- 1/2 NS with 40 mEq of KCl IVPB at 100 cc/hr - discontinued f/u abd/pelv CT -> mild constipation, diffuse sigmoid colon wall thickening contains diverticulosis without evidence of diverticulitis. 1.9 cm lesion at the upper pole of the L kidney with higher density than simple fluid. Mild bilateral perinephric stranding. Now on full regular diet f/u am labs Status: Acute Vomiting Assessment and Plan: Present but improving Patient not tolerated Zofran 40 IVP Q6H PRN Reglan 10mg IVP prn (meds can be alternated) Status: Acute Alcohol abuse Assessment and Plan: Ativan Taper - now 1 PO Q 8 hours Multivitamin/thiamine/folic acid Seizure precautions Aspiration precautions Withdrawal checks Q1H with hx of substance abuse (last use of heroin before last admission over a month ago) Status: Acute Major depression Assessment and Plan: Psych consult- Dr. Siegel- help appreciated No current SI/HI Gabapentin 100mg TID JAN Status: Acute Tobacco abuse disorder Assessment and Plan: Nicoderm patch Status: Acute Hypomagnesia Assessment and Plan: Mg 1.4 today Will replace x 2 grams IV Status: Acute Hypokalemia Assessment and Plan: Resolved Status: Acute Prophylactic measure Assessment and Plan: Protonix 40 mg IVP daily SCDs Full regular diet Colace 100mg PO BID Status: Acute <Sherley Landeros V - Last Filed: 12/01/16 19:17> Objective - Vital Signs/Intake and Output Vital Signs (last 24 hours): Temp Pulse Resp BP Pulse Ox 98.1 F 62 20 116/73 95 12/01/16 07:29 12/01/16 07:29 12/01/16 07:29 12/01/16 07:29 12/01/16 07:29 Intake and Output: 12/01/16 12/01/16 06:59 18:59 Intake Total 840 580 Output Total 600 Balance 240 580 - Labs Labs: 12/01/16 07:47 12/01/16 07:47 PT 10.6 SECONDS (9.7-12.2) 11/28/16 11:58 INR 1.0 11/28/16 11:58 APTT 30 SECONDS (21-34) 11/28/16 11:58 Attending/Attestation - Attestation I have personally seen and examined this patient.: Yes I have fully participated in the care of the patient.: Yes I have reviewed all pertinent clinical information, including history, physical exam and plan: Yes
--- NOTE | 2016-11-30 13:56 | PCM.PYCHPN ---
Psychiatric Progress Note - Psychiatric Progress Note Patient seen today, length of contact: 15 minutes Patient Chief Complaint: "feeling better" Problems Identified/Issues Discussed: Pt seen, chart reviewed, and case discussed Pt states she is feeling better and slept on and off last night. Denies withdrawal symptoms. Complains of intermittent epigastric abdominal pain. Pt's main concern is getting her medical issues under control so she can get back to work. Denies suicidal ideation, homicidal ideation, and hallucinations Psychoeducation and support provided. Medication Change: Yes (detox changes daily) Medical Record Reviewed: Yes Mental Status Examination - Cognitive Function Orientation: Person, Place, Situation, Time Memory: Intact Attention: WNL Concentration: WNL Association: WNL Fund of Knowledge: WNL - Mood Mood: Anxious - Affect Affect: Constricted - Speech Speech: Appropriate - Formal Thought Process Formal Thought Process: No Impairment - Suicidal Ideation Suicidal Ideation: No - Homicidal Ideation Homicidal Ideation: No Goal/Treatment Plan - Goal/Treatment Plan Need for Continued Stay: Remain at risks for inpatient hospitalization, Severe functional impairment Progress Toward Problem(s) and Goals/Treatment Plan: Alcohol: -Ativan taper -Gabapentin 100mg PO TID -[place], [place] -Refer to rehab program Depressive disorder-unspecified -attend groups and activities -Supportive psychotherapy -[place], [place]BT Estimated Date of D/C: 12/03/16 (if medically cleared)
[2016-11-30] MEDS: HYDROmorphone 1 mg/ml ISec IVP PRN (18:20)
[2016-12-01] MEDS: HYDROmorphone 1 mg/ml ISec IVP PRN ×3 (00:20→13:07)
[2016-12-01 00:41] VITALS: O2SAT 95
[2016-12-01 07:30] VITALS: BP 116/73; PULSE 62; TEMP 98.1
[2016-12-01 08:00] LABS: BASO # 0.1 K/uL (0.0-0.2); EOS # 0.1 K/uL (0.0-0.7); EOS % 1.9 % (0.0-4.0); HEMATOCRIT 40.1 % (34.0-47.0); LYMPH # 1.4 K/uL (1.0-4.3); LYMPH % 17.7 % (20.0-40.0); MEAN CELL VOLUME 97.5 fL (81.0-99.0); MEAN CORPUSCULAR HEMOGLOBIN 32.6 pg (27.0-31.0); MEAN CORPUSCULAR HGB CONC 33.5 g/dL (33.0-37.0); MEAN PLATELET VOLUME 9.2 fL (7.2-11.7); MONO % 12.2 % (0.0-10.0); NRBC % 0.1 % (0.0-2.0); RED CELL DISTRIBUTION WIDTH 13.2 % (11.5-14.5); WHITE BLOOD COUNT 7.9 K/uL (4.8-10.8)
[2016-12-01 08:04] LABS: CHLORIDE 94 mmol/L (98-107)
[2016-12-01 08:05] LABS: POTASSIUM 4.4 mmol/L (3.6-5.2); SODIUM 135 mmol/L (132-148)
[2016-12-01 08:07] LABS: GFR AFRICAN-AMERICAN > 60
[2016-12-01 08:08] LABS: ALB/GLOB RATIO 1.2 (1.0-2.1); ALKALINE PHOSPHATASE 91 U/L (38-126); ALT/SGPT 180 U/L (9-52); AST/SGOT 200 U/L (14-36); BILIRUBIN,TOTAL 0.4 mg/dL (0.2-1.3); BLOOD UREA NITROGEN 17 mg/dL (7-17); CARBON DIOXIDE 26 mmol/L (22-30); GLUCOSE,RANDOM 154 mg/dL (65-105); TOTAL PROTEIN 7.1 g/dL (6.3-8.3)
[2016-12-01 08:09] LABS: CALCIUM 9.2 mg/dl (8.6-10.4); MAGNESIUM 1.6 mg/dL (1.6-2.3)
[2016-12-01] MEDS: Thiamine 100 mg/ml Inj IV SCH (09:36)
[2016-12-01] MEDS: Multiple Vitamins Tab PO SCH (09:37)
[2016-12-01] MEDS: oxyCODONE 20 mg ER Tab (oxyCONTIN) PO SCH (09:46)
--- NOTE | 2016-12-01 14:23 | CP.PCM.DIS ---
Provider - Provider Date of Admission: 11/27/16 23:48 Attending physician: Corwin Nayak MD Hospital Course - Lab Results Lab Results: Most Recent Lab Values WBC 7.9 K/uL (4.8-10.8) 12/01/16 07:47 RBC 4.11 Mil/uL (3.80-5.20) 12/01/16 07:47 Hgb 13.4 g/dL (11.0-16.0) 12/01/16 07:47 Hct 40.1 % (34.0-47.0) 12/01/16 07:47 MCV 97.5 fL (81.0-99.0) 12/01/16 07:47 MCH 32.6 pg (27.0-31.0) H 12/01/16 07:47 MCHC 33.5 g/dL (33.0-37.0) 12/01/16 07:47 RDW 13.2 % (11.5-14.5) 12/01/16 07:47 Plt Count 240 K/uL (130-400) 12/01/16 07:47 MPV 9.2 fL (7.2-11.7) 12/01/16 07:47 Neut % (Auto) 67.2 % (50.0-75.0) 12/01/16 07:47 Lymph % (Auto) 17.7 % (20.0-40.0) L 12/01/16 07:47 [place] % (Auto) 12.2 % (0.0-10.0) H 12/01/16 07:47 Eos % (Auto) 1.9 % (0.0-4.0) 12/01/16 07:47 Baso % (Auto) 1.0 % (0.0-2.0) 12/01/16 07:47 Neut # 5.3 K/uL (1.8-7.0) 12/01/16 07:47 Lymph # 1.4 K/uL (1.0-4.3) 12/01/16 07:47 [place] # 1.0 K/uL (0.0-0.8) H 12/01/16 07:47 Eos # 0.1 K/uL (0.0-0.7) 12/01/16 07:47 Baso # 0.1 K/uL (0.0-0.2) 12/01/16 07:47 Neutrophils % (Manual) 79 % (50-75) H 11/29/16 07:04 Band Neutrophils % 4 % (0-2) H 11/29/16 07:04 Lymphocytes % (Manual) 11 % (20-40) L 11/29/16 07:04 Reactive Lymphs % 1 % (0-0) H 11/28/16 11:58 Monocytes % (Manual) 5 % (0-10) 11/29/16 07:04 Eosinophils % (Manual) 1 % (0-4) 11/29/16 07:04 Basophils % (Manual) 2 % (0-2) 11/28/16 11:58 Platelet Estimate Normal (NORMAL) 11/29/16 07:04 Large Platelets Present 11/29/16 07:04 RBC Morphology Normal 11/29/16 07:04 PT 10.6 SECONDS (9.7-12.2) 11/28/16 11:58 INR 1.0 11/28/16 11:58 APTT 30 SECONDS (21-34) 11/28/16 11:58 Sodium 135 mmol/L (132-148) 12/01/16 07:47 Potassium 4.4 mmol/L (3.6-5.2) 12/01/16 07:47 Chloride 94 mmol/L (98-107) L 12/01/16 07:47 Carbon Dioxide 26 mmol/L (22-30) 12/01/16 07:47 Anion Gap 19 (10-20) 12/01/16 07:47 BUN 17 mg/dL (7-17) 12/01/16 07:47 Creatinine 0.7 MG/DL (0.7-1.2) 12/01/16 07:47 Est GFR ( Amer) > 60 12/01/16 07:47 Est GFR (Non-Af Amer) > 60 12/01/16 07:47 Random Glucose 154 mg/dL (65-105) H 12/01/16 07:47 Lactic Acid 1.9 mmol/L (0.7-2.1) 12/01/16 13:13 Calcium 9.2 mg/dl (8.6-10.4) 12/01/16 07:47 Phosphorus 5.0 mg/dL (2.5-4.5) H 12/01/16 07:47 Magnesium 1.6 mg/dL (1.6-2.3) 12/01/16 07:47 Total Bilirubin 0.4 mg/dL (0.2-1.3) 12/01/16 07:47 AST 200 U/L (14-36) H D 12/01/16 07:47 ALT 180 U/L (9-52) H D 12/01/16 07:47 Alkaline Phosphatase 91 U/L (38-126) 12/01/16 07:47 Total Protein 7.1 g/dL (6.3-8.3) 12/01/16 07:47 Albumin 3.9 g/dL (3.5-5.0) 12/01/16 07:47 Globulin 3.2 gm/dL (2.2-3.9) 12/01/16 07:47 Albumin/Globulin Ratio 1.2 (1.0-2.1) 12/01/16 07:47 Lipase 103 U/L (23-300) 11/29/16 07:04 Urine Color Yellow (YELLOW) 11/27/16 22:14 Urine Clarity Clear (Clear) 11/27/16 22:14 Urine pH 7.0 (5.0-8.0) 11/27/16 22:14 Ur Specific [place] 1.014 (1.003-1.030) 11/27/16 22:14 Urine Protein Negative mg/dL (NEGATIVE) 11/27/16 22:14 Urine Glucose (UA) Normal mg/dL (Normal) 11/27/16 22:14 Urine Ketones Trace mg/dL (NEGATIVE) 11/27/16 22:14 Urine Blood Negative (NEGATIVE) 11/27/16 22:14 Urine Nitrate Negative (NEGATIVE) 11/27/16 22:14 Urine Bilirubin Negative (NEGATIVE) 11/27/16 22:14 Urine Urobilinogen 4.0 mg/dL (0.2-1.0) H 11/27/16 22:14 Ur Leukocyte Esterase Neg [place]/uL (Negative) 11/27/16 22:14 Urine WBC (Auto) 1 /hpf (0-5) 11/27/16 22:14 Urine RBC (Auto) < 1 /hpf (0-3) 11/27/16 22:14 Ur Squamous Epith Cells 1 /hpf (0-5) 11/27/16 22:14 Urine HCG, Qual Negative (NEGATIVE) 11/27/16 22:14 Urine Opiates Screen Positive (NEGATIVE) 11/27/16 22:14 Urine Methadone Screen Negative (NEGATIVE) 11/27/16 22:14 Ur Barbiturates Screen Negative (NEGATIVE) 11/27/16 22:14 Ur Phencyclidine Scrn Negative (NEGATIVE) 11/27/16 22:14 Ur Amphetamines Screen Negative (NEGATIVE) 11/27/16 22:14 U Benzodiazepines Scrn Negative (NEGATIVE) 11/27/16 22:14 U Oth Cocaine Metabols Negative (NEGATIVE) 11/27/16 22:14 U Cannabinoids Screen Negative (NEGATIVE) 11/27/16 22:14 Alcohol, Quantitative 49 mg/dl (0-10) H 11/27/16 19:15 - Hospital Course Hospital Course: On admission: 51 year old female with PMHx of alcohol and heroin abuse, chronic pancreatitis, depression presents with 4 day history of abdominal pain, nausea and vomiting. Patient reports 10 out of 10 pain, which does not radiate. Pain has been progressive over the past 4 days and intermittent. Pain is not related to food intake. She reports she has not been able to eat or drink anything for the past 4 days. She took "Protonix, Reglan, Pepcid and pain pill", which were prescribed during September admission with no relief. Patient has history of multiple admissions for pancreatitis, alcohol and opioid abuse. Last admitted for heroin and alcohol detox on 10/17/2016. Admits she drank heavily with her son on the night prior to admission. She reports consuming half a gallon of vodka between her and her son. She does feel she has significantly decreased her alcohol, heroin and tobacco intake since last discharge, but relapsed when after receiving bad news from her son. Admits to recent [place] [facility] [place] observed overnight for abdominal pain. Patient denies depressed mood, but admits to anxiety and feeling "overwhelmed". Admits to intermittent diarrhea, and goosebumps. Last episode of diarrhea was yesterday. No additional episodes. Denies chest pain, palpitations, SOB, fevers, headaches, dysuria, hematuria, hematochezia, hemoptysis. Denies SI/HI. Patient stable for discharge home. Patient is to follow up in the [facility] within one week of discharge. Patient is to call the clinic to make an appointment to get follow up. She will need a referral to pain management. Patient is to take the following medications: 1. Multivitamin one by mouth daily 2. Folic acid 1 mg one by mouth daily 3. Thiamine 100 mg one by mouth daily 4. Clonidine 0.1 mg one patch apply to skin once every 24 hours 5. Gabapentin 100 mg one by mouth twice a day 6. Colace 100 mg one by mouth twice a day 7. Oxycodone ER 20mg one my mouth twice a day - only given a 5 day supply Patient is to stop drinking alcohol. She was counselled about alcohol abuse during this admission. She should return to the emergency room if symptoms return or persist. All instruction explained to the patient and she agrees. Discharge Exam - Head Exam Head Exam: ATRAUMATIC, NORMAL INSPECTION, NORMOCEPHALIC Discharge Plan - Discharge Medications Prescriptions: Docusate [Colace] 100 mg PO BID #60 cap Folic Acid 1 mg PO DAILY #30 tab Gabapentin 100 mg PO BID #60 capsule Multivitamins [Hexavitamin] 1 tab PO DAILY #30 tab Thiamine [Vitamin B1 Tab] 100 mg PO DAILY #30 tab cloNIDine 0.1 mg/24 hr [catapres TTS1 0.1 mg/24 hr] 1 patch TD Q7D@1000 #30 patch oxyCODONE [oxyCONTIN Extended Release Tab] 20 mg PO Q12 #10 tabsr - Follow Up Plan Condition: GOOD Disposition: HOME/ ROUTINE Instructions: Clonidine (By mouth), Thiamine (Vitamin B-1) (By mouth), Folic Acid (By mouth), Laxative, Stool Softeners (By mouth), Multivitamins with Minerals (By mouth), Gabapentin (By mouth), Oxycodone, Slow Release (By mouth), Pancreatitis (DC), Abuse of Alcohol (DC) Additional Instructions: Patient stable for discharge home. Patient is to follow up in the [facility] within one week of discharge. Patient is to call the clinic to make an appointment to get follow up. She will need a referral to pain management. Patient is to take the following medications: 1. Multivitamin one by mouth daily 2. Folic acid 1 mg one by mouth daily 3. Thiamine 100 mg one by mouth daily 4. Clonidine 0.1 mg one patch apply to skin once every 24 hours 5. Gabapentin 100 mg one by mouth twice a day 6. Colace 100 mg one by mouth twice a day 7. Oxycodone ER 20mg one my mouth twice a day - only given a 5 day supply Patient is to stop drinking alcohol. She was counselled about alcohol abuse during this admission. She should return to the emergency room if symptoms return or persist. All instruction explained to the patient and she agrees. Referrals: Shirin Matamoros MD [Staff Provider] - Comfort Tijerina MD [Staff Provider] -
== END 2016-12-01 17:00 | disposition home or self-care (01) ==
LOC: C.ER 18:44 → C.6T 23:48 → C.3T 11-29 10:23
PROVIDERS: ADMIT Internal Medicine; ATTEND Internal Medicine
PROC: HZ2ZZZZ Detoxification Services for Substance Abuse Treatment (ICD-10-PCS; principal; 2016-11-29)
PROC: HZ52ZZZ Individual Psychotherapy for Substance Abuse Treatment, Cognitive-Behavioral (ICD-10-PCS; 2016-11-29)
PROC: HZ59ZZZ Individual Psychotherapy for Substance Abuse Treatment, Supportive (ICD-10-PCS; 2016-11-29)
DX: K85.20 Alcohol induced acute pancreatitis without necrosis or infection (principal); F11.20 Opioid dependence, uncomplicated; I10 Essential (primary) hypertension; F10.239 Alcohol dependence with withdrawal, unspecified; F31.9 Bipolar disorder, unspecified; K86.0 Alcohol-induced chronic pancreatitis; F41.9 Anxiety disorder, unspecified; K29.80 Duodenitis without bleeding; K29.70 Gastritis, unspecified, without bleeding; K44.9 Diaphragmatic hernia without obstruction or gangrene; E87.6 Hypokalemia; E83.42 Hypomagnesemia; K57.90 Diverticulosis of intestine, part unspecified, without perforation or abscess without bleeding; K85.90 Acute pancreatitis without necrosis or infection, unspecified; K59.00 Constipation, unspecified; Z72.0 Tobacco use; Z79.899 Other long term (current) drug therapy; Z87.11 Personal history of peptic ulcer disease; Z87.442 Personal history of urinary calculi

== ENCOUNTER 2016-12-15 07:27 | Inpatient (IN) | payer MEDICAID ==
[2016-12-15 07:28] VITALS: BMI 18.2
[2016-12-15] MEDS ORDERED: Sodium Chloride 0.9% 1,000 ML IV ONE ×2 (07:47→12:14)
[2016-12-15] MEDS ORDERED: Sodium Chloride 0.9% 1,000 ML ONE ×2 (08:03→12:29)
[2016-12-15] MEDS ORDERED: Morphine 4 MG/ML VIAL ONE (08:10)
[2016-12-15 08:17] LABS: BASO % 0.4 % (0.0-2.0); EOS % 0.1 % (0.0-4.0); HEMATOCRIT 45.8 % (34.0-47.0); LYMPH # 0.5 K/uL (1.0-4.3); LYMPH % 6.7 % (20.0-40.0); MEAN CORPUSCULAR HEMOGLOBIN 32.3 pg (27.0-31.0); MEAN CORPUSCULAR HGB CONC 33.9 g/dL (33.0-37.0); MEAN PLATELET VOLUME 8.6 fL (7.2-11.7); MONO # 0.2 K/uL (0.0-0.8); MONO % 2.7 % (0.0-10.0); PLATELET COUNT 247 K/uL (130-400); RED CELL DISTRIBUTION WIDTH 13.7 % (11.5-14.5)
[2016-12-15 08:19] LABS: MEAN CELL VOLUME 95.2 fL (81.0-99.0)
[2016-12-15 08:25] LABS: CHLORIDE 94 mmol/L (98-107)
[2016-12-15 08:26] LABS: POTASSIUM 3.8 mmol/L (3.6-5.2); SODIUM 146 mmol/L (132-148)
[2016-12-15] MEDS ORDERED: Iohexol 240 (50 ml) PO ONE ×2 (08:27→17:45)
[2016-12-15 08:28] LABS: ALB/GLOB RATIO 1.1 (1.0-2.1); ALKALINE PHOSPHATASE 125 U/L (38-126); ALT/SGPT 58 U/L (9-52); AST/SGOT 91 U/L (14-36); BILIRUBIN,TOTAL 1.6 mg/dL (0.2-1.3); BLOOD UREA NITROGEN 10 mg/dL (7-17); CARBON DIOXIDE 33 mmol/L (22-30); GFR AFRICAN-AMERICAN > 60; GLUCOSE,RANDOM 197 mg/dL (65-105); TOTAL PROTEIN 9.6 g/dL (6.3-8.3)
[2016-12-15 08:29] LABS: ALCOHOL SERUM < 10 mg/dl (0-10); CALCIUM 10.1 mg/dl (8.6-10.4)
[2016-12-15] MEDS ORDERED: HYDROmorphone 1 mg/ml ISec IVP STA ×3 (08:37→12:13)
[2016-12-15 08:42] LABS: BASOPHIL 1 % (0-2); NEUTROPHIL 89 % (50-75); NUCLEATED RED BLOOD CELL 1 % (0-0); TOTAL CELLS COUNTED 100
[2016-12-15 08:55] LABS: RBC URINE 1 /hpf (0-3); URINE BACTERIA RARE (<OCC); URINE BILIRUBIN NEGATIVE (NEGATIVE); URINE BLOOD NEGATIVE (NEGATIVE); URINE COLOR Yellow (YELLOW); URINE GLUCOSE (UA) NORMAL (Normal); URINE KETONE 1+ mg/dL (NEGATIVE); URINE LEUKOCYTE ESTERASE NEG Leu/uL (Negative); URINE PROTEIN 1+ mg/dL (NEGATIVE)
[2016-12-15] MEDS ORDERED: Iohexol 240 (50 ml) ONE (08:57)
[2016-12-15 08:58] LABS: WBC URINE 3 /hpf (0-5)
[2016-12-15] MEDS ORDERED: HYDROmorphone 1 mg/ml ISec ONE ×3 (08:58→12:30)
--- NOTE | 2016-12-15 10:52 | C.PDOC ---
History Of Present Illness 51 yr old female with PMHx of recurrent pancreatitis, presents to the ER with complaints of epigastric pain for the past 1 week. Patient reports of nausea and non bloody vomiting, and unable to tolerate PO. Patient denies fever, chills , chest pain, SOB, diarrhea, constipation, dysuria, incontinence, weakness or numbness. Time Seen by Provider: 12/15/16 07:50 Chief Complaint (Nursing): Abdominal Pain History Per: Patient History/Exam Limitations: no limitations Onset/Duration Of Symptoms: Persistent (1 week ) Location Of Pain/Discomfort: Epigastric Past Medical History Reviewed: Historical Data, Nursing Documentation, Vital Signs Vital Signs: Last Vital Signs Temp 98.3 F 12/15/16 12:42 Pulse 116 H 12/15/16 15:19 Resp 22 12/15/16 15:19 BP 141/101 H 12/15/16 15:19 Pulse Ox 98 12/15/16 15:19 - Medical History PMH: Anxiety (denies), Bipolar Disorder (denies), Depression (denies), Diverticulitis, Gastritis, Gastrointestinal Ulcer, GERD, Kidney Stones, Pancreatitis, Chronic Pain (+Chronic lower back pain) Surgical History: Endoscopy (Colonoscopy), Tonsillectomy - [facility] Procedures DETOXIFICATION SERVICES FOR SUBSTANCE ABUSE TREATMENT (11/27/16) EXCISION OF STOMACH, ENDO, DIAGN (06/01/16) GROUP TEST BORE HELPER FOR SUBSTANCE ABUSE TREATMENT, PSYCHOEDUCATION (10/17/16) GROUP PSYCHOTHERAPY (01/26/16) INDIV TEST BORE HELPER FOR SUBSTANCE ABUSE TREATMENT, PSYCHOEDUCATION (10/17/16) INDIV TEST BORE HELPER FOR SUBSTANCE ABUSE, COGNITIVE BEHAVIORAL (10/17/16) INDIV PSYCHOTHERAPY FOR SUBSTANCE ABUSE TREATMENT, SUPPORT (11/27/16) INDIV PSYCHOTHERAPY FOR SUBSTANCE ABUSE, COGNITIV BEHAVIORAL (11/27/16) INDIV PSYCHOTHERAPY FOR SUBSTANCE ABUSE, PSYCHOEDUCATION (10/17/16) INDIVIDUAL PSYCHOTHERAPY, SUPPORTIVE (01/26/16) INJECT/INFUSE NEC (04/10/15) MEDS MGMT FOR SUBSTANCE ABUSE TREATMENT, METHADONE MAINT (01/26/16) Family History: States: No Known Family Hx - Social History Hx Tobacco Use: Yes Hx Alcohol Use: Yes (denies) Hx Substance Use: Yes (denies) - Immunization History Hx Tetanus Toxoid Vaccination: Yes Hx Influenza Vaccination: Yes Hx Pneumococcal Vaccination: Yes Review Of Systems Except As Marked, All Systems Reviewed And Found Negative. Constitutional: Negative for: Fever, Chills Cardiovascular: Negative for: Chest Pain Respiratory: Negative for: Shortness of Breath Gastrointestinal: Positive for: Nausea, Vomiting, Abdominal Pain (Epigastric). Negative for: Diarrhea, Constipation Genitourinary: Negative for: Dysuria, Incontinence Neurological: Negative for: Weakness, Numbness Physical Exam - Physical Exam Appears: Well, Non-toxic, No Acute Distress Skin: Warm, Dry, No Rash Head: No Atraumatic, No Normacephalic Oral Mucosa: Moist Neck: Normal, Normal ROM, Supple Chest: Symmetrical Cardiovascular: Rhythm Regular, No Murmur Respiratory: Normal Breath Sounds, No Rales, No Rhonchi, No Wheezing Gastrointestinal/Abdominal: Soft, Tenderness (Diffuse), No Guarding, No Rebound , No Ascites Extremity: Normal ROM, No Swelling Neurological/Psych: Oriented x3, Normal Speech, Normal Motor ED Course And Treatment - Laboratory Results Result Diagrams: 12/15/16 08:04 12/15/16 08:04 O2 Sat by Pulse Oximetry: 98 - CT Scan/US CT - Abd & Pelvis Other Rad Studies (CT/US): Read By Radiologist, Radiology Report Reviewed CT/US Interpretation: PROCEDURE: CT Abdomen and Pelvis with oral and IV contrast. HISTORY: diffuse abdominal pain- h/o pancreatitis. COMPARISON: CT abdomen and pelvis performed 11/27/16. TECHNIQUE: Contiguous axial images of the abdomen and pelvis. Oral and IV contrast was administered. Coronal and Sagittal reformats generated and reviewed. This CT exam was performed using 1 or more of the following dose reduction techniques: Automated exposure control, adjustment of the MAA and/or kV according to patient size, and/or use of iterative reconstruction technique. Contrast dose: 100 mL Visipaque. Radiation dose: Total exam DLP = 338.40 mGy-cm. FINDINGS: LOWER THORAX: Mild patchy nodular opacity at the right lung base compatible with pneumonia. No visible pleural effusion or pneumothorax. LIVER: Diffuse hypoattenuation of the liver compatible with hepatic steatosis. GALLBLADDER AND BILE DUCTS: Unremarkable. PANCREAS: Question mild edematous appearance of the pancreatic head/uncinate process; correlate with amylase and lipase to exclude possibility of acute pancreatitis. SPLEEN: Unremarkable. ADRENALS: Unremarkable. KIDNEYS AND URETERS: The kidneys enhance symmetrically. No hydronephrosis or obstructing renal calculus. BLADDER: The urinary bladder appears unremarkable. REPRODUCTIVE: Uterus is present. APPENDIX: No secondary signs of acute appendicitis. BOWEL: The stomach is incompletely distended which limits evaluation. The bowel loops appear within normal limits of caliber without evidence of intestinal obstruction. Most of the colon is decompressed, limiting evaluation for focal or diffuse pathology. Mild wall thickening may be out of proportion to underdistention; correlate clinically for possibility of colitis (i.e. infectious, inflammatory, ischemic). PERITONEUM: No significant free fluid. No definite free air. LYMPH NODES: No bulky lymphadenopathy identified. VASCULATURE: No aortic aneurysm. BONES: Scoliosis. Multilevel degenerative changes. OTHER FINDINGS: None. IMPRESSION: Most of the colon is decompressed, limiting evaluation for focal or diffuse pathology. Mild wall thickening may be out of proportion to underdistention; correlate clinically for possibility of colitis (i.e. infectious, inflammatory, ischemic). Question mild edematous appearance of the pancreatic head/uncinate process; correlate with amylase and lipase to exclude possibility of acute pancreatitis. Mild patchy nodular opacity at the right lung base compatible with pneumonia. Additional incidental findings as above. Medical Decision Making Medical Decision Making: PLAN: * CT - Abd & Pelvis * Alcohol Serum * Drug Screen * CBC * POC * Urinalysis * Dilaudid IVP * Morphine IVP * Pepcid IVP * Reglan IVP * Zofran IVp * Sodium Chloride IV Disposition - Disposition Disposition Time: 14:15 Condition: STABLE - Clinical Impression Clinical Impression: Pancreatitis, Nausea, Abdominal pain, Vomiting - Scribe Statement The provider has reviewed the documentation as recorded by the Kit Reyes Provider Attestation: All medical record entries made by the Kit were at my direction and personally dictated by me. I have reviewed the chart and agree that the record accurately reflects my personal performance of the history, physical exam, medical decision making, and the department course for this patient. I have also personally directed, reviewed, and agree with the discharge instructions and disposition.
[2016-12-15] MEDS ORDERED: Iodixanol 320 MG/ML 100 ML BOTTLE IV ONE (12:54)
--- NOTE | 2016-12-15 14:08 | CT ---
PROCEDURE: CT Abdomen and Pelvis with oral and IV contrast. HISTORY: diffuse abdominal pain- h/o pancreatitis COMPARISON: CT abdomen and pelvis performed 11/27/16 TECHNIQUE: Contiguous axial images of the abdomen and pelvis. Oral and IV contrast was administered. Coronal and Sagittal reformats generated and reviewed. This CT exam was performed using 1 or more of the following dose reduction techniques: Automated exposure control, adjustment of the MAA and/or kV according to patient size, and/or use of iterative reconstruction technique Contrast dose: 100 mL Visipaque Radiation dose: Total exam DLP = 338.40 mGy-cm. FINDINGS: LOWER THORAX: Mild patchy nodular opacity at the right lung base compatible with pneumonia. No visible pleural effusion or pneumothorax. LIVER: Diffuse hypoattenuation of the liver compatible with hepatic steatosis. GALLBLADDER AND BILE DUCTS: Unremarkable. PANCREAS: Question mild edematous appearance of the pancreatic head/uncinate process; correlate with amylase and lipase to exclude possibility of acute pancreatitis. SPLEEN: Unremarkable. ADRENALS: Unremarkable. KIDNEYS AND URETERS: The kidneys enhance symmetrically. No hydronephrosis or obstructing renal calculus. BLADDER: The urinary bladder appears unremarkable. REPRODUCTIVE: Uterus is present. APPENDIX: No secondary signs of acute appendicitis. BOWEL: The stomach is incompletely distended which limits evaluation. The bowel loops appear within normal limits of caliber without evidence of intestinal obstruction. Most of the colon is decompressed, limiting evaluation for focal or diffuse pathology. Mild wall thickening may be out of proportion to underdistention; correlate clinically for possibility of colitis (i.e. infectious, inflammatory, ischemic). PERITONEUM: No significant free fluid. No definite free air. LYMPH NODES: No bulky lymphadenopathy identified. VASCULATURE: No aortic aneurysm. BONES: Scoliosis. Multilevel degenerative changes. OTHER FINDINGS: None. IMPRESSION: Most of the colon is decompressed, limiting evaluation for focal or diffuse pathology. Mild wall thickening may be out of proportion to underdistention; correlate clinically for possibility of colitis (i.e. infectious, inflammatory, ischemic). Question mild edematous appearance of the pancreatic head/uncinate process; correlate with amylase and lipase to exclude possibility of acute pancreatitis. Mild patchy nodular opacity at the right lung base compatible with pneumonia. Additional incidental findings as above.
--- NOTE | 2016-12-15 16:01 | CP.PCM.PN ---
Subjective - Date & Time of Evaluation Date of Evaluation: 12/15/16 Time of Evaluation: 15:00 - Subjective Subjective: Medicine Note- Dr. Mora's service Patient was seen and examined at bedside. She is a 51 year old F with PMHx of alcohol abuse, recurrent pancreatitis, presenting to the ED complaining of abdominal pain that started two days ago. She localized to her epigastric area, constant, accompanied by nausea, and states she has been vomiting constantly. She says she has been unable to eat for the past 2 days, she has been vomiting constantly. Admits to fevers, no chills. She says she has been She says she doesnt actually have a history of depression and anxiety, she said she made up that history before because she was told she needed to by people she knew, in order to get into detox. She reports she has not had any alcohol for about 4 days, prior to that, she drank about 1 pt daily for the past year and a half. Prior to that she drank only socially. Smokes about 5 ciggs/day , denies active drug use, has hx of marijuana use and experimented with cocaine. Objective - Vital Signs/Intake and Output Vital Signs (last 24 hours): Temp Pulse Resp BP Pulse Ox 98.3 F 116 H 22 141/101 H 98 12/15/16 12:42 12/15/16 15:19 12/15/16 15:19 12/15/16 15:19 12/15/16 15:19 - Medications Medications: Current Medications Sodium Chloride (Sodium Chloride 0.9%) 1,000 mls @ 250 mls/hr IV .Q4H ONE Stop: 12/15/16 16:13 Last Admin: 12/15/16 13:23 Dose: 250 mls/hr - Constitutional Appears: Non-toxic, No Acute Distress, Agitated, Cachectic - ENT Exam ENT Exam: Mucous Membranes Moist - Respiratory Exam Respiratory Exam: Clear to Ausculation Bilateral, NORMAL BREATHING PATTERN. absent: Prolonged Expiratory Phase, Rales, Rhonchi, Wheezes - Cardiovascular Exam Cardiovascular Exam: REGULAR RHYTHM, +S1, +S2 - GI/Abdominal Exam GI & Abdominal Exam: Soft, Normal Bowel Sounds. absent: Tenderness, Diminished Bowel Sounds, Hypoactive Bowel Sounds - Extremities Exam Extremities Exam: Normal Capillary Refill - Neurological Exam Neurological Exam: Alert, Awake, Oriented x3 - Psychiatric Exam Psychiatric exam: Anxious, Manic - Skin Skin Exam: Dry, Intact, Normal Color, Warm Assessment and Plan - Assessment and Plan (Free Text) Assessment: Pancreatitis/ Colitis Lipase on admission: [address] Abdomen/Pelvis- 12/15/16- Most of colon is decompressed, limiting evaluation for focal or diffuse pathology. Mild wall thickening may be out of proportion to underdistention, possible colitis. QUestionable mild edematous appearance of the pancreatic head/uncinate process; correlate with amylase and lipase to exclude acute pancreatitis. Mild Patchy nodular opacity right lung base compatible with pneumonia Started on Flagyl 500mg IVPB Q8h (started 12/15/16) Started on Cipro 400mg IVPB Q12h (started 12/15/16) Started on Morphine 2mg IVP Q4h PRN for pain Alcohol abuse Started on Ativan 2mg IVP Q6h PRN for withdrawal symptoms Banana bag x 1 bag @ 150cc/hr IVF NS @ 150cc/hr after banana bag finishes Thiamine 100mg PO Daily starting tomorrow Multivitamin starting tomorrow Folic acid 1mg PO Daily starting tomorrow Prophylactic Measures SCDs Protonix 40mg IVP Daily
[2016-12-15] MEDS ORDERED: metroNIDAZOLE IV 500 mg/100 ml 100 ML ONE (16:25)
[2016-12-15] MEDS ORDERED: Folic Acid 1 MG, Thiamine 100 MG, Multivitamin (MVI) 10 ML in Dextrose 5% In Water 1,00... IV SCH ×2 (16:30)
[2016-12-15] MEDS: metroNIDAZOLE IV 500 mg/100 ml 100 ML IVPB SCH ×2 (16:31→19:28)
[2016-12-15] MEDS ORDERED: Ciprofloxacin 400mg/200ml D5W 200 ML IVPB SCH (17:00)
[2016-12-15 18:49] VITALS: RESP 20
[2016-12-15] MEDS: Sodium Chloride 0.9% 1,000 ML IV SCH ×2 (19:34→23:10)
[2016-12-15] MEDS: Ciprofloxacin 400mg/200ml D5W 200 ML IVPB SCH (20:32)
[2016-12-16] MEDS: Sodium Chloride 0.9% 1,000 ML IV SCH ×2 (01:44→15:40)
[2016-12-16] MEDS: metroNIDAZOLE IV 500 mg/100 ml 100 ML IVPB SCH ×3 (02:35→17:44)
[2016-12-16 07:13] LABS: BASO % 0.4 % (0.0-2.0); EOS % 0.6 % (0.0-4.0); HEMATOCRIT 38.6 % (34.0-47.0); LYMPH # 1.4 K/uL (1.0-4.3); LYMPH % 21.8 % (20.0-40.0); MEAN CELL VOLUME 95.9 fL (81.0-99.0); MEAN CORPUSCULAR HEMOGLOBIN 31.9 pg (27.0-31.0); MEAN CORPUSCULAR HGB CONC 33.3 g/dL (33.0-37.0); MEAN PLATELET VOLUME 8.7 fL (7.2-11.7); MONO # 0.4 K/uL (0.0-0.8); MONO % 6.4 % (0.0-10.0); NRBC % 0.1 % (0.0-2.0); RED CELL DISTRIBUTION WIDTH 13.5 % (11.5-14.5); WHITE BLOOD COUNT 6.3 K/uL (4.8-10.8)
[2016-12-16 07:38] LABS: CHLORIDE 95 mmol/L (98-107); POTASSIUM 3.1 mmol/L (3.6-5.2); SODIUM 135 mmol/L (132-148)
[2016-12-16 07:40] LABS: GFR AFRICAN-AMERICAN > 60
[2016-12-16 07:41] LABS: ALB/GLOB RATIO 1.2 (1.0-2.1); ALKALINE PHOSPHATASE 79 U/L (38-126); ALT/SGPT 40 U/L (9-52); AST/SGOT 51 U/L (14-36); BLOOD UREA NITROGEN 6 mg/dL (7-17); CARBON DIOXIDE 29 mmol/L (22-30); GLUCOSE,RANDOM 104 mg/dL (65-105); PHOSPHOROUS 2.7 mg/dL (2.5-4.5); TOTAL PROTEIN 6.8 g/dL (6.3-8.3)
[2016-12-16 07:42] LABS: CALCIUM 8.5 mg/dl (8.6-10.4)
[2016-12-16] MEDS: Ciprofloxacin 400mg/200ml D5W 200 ML IVPB SCH ×2 (07:43→20:29)
[2016-12-16] MEDS ORDERED: Potassium Chloride 20 mEq ER Tab PO ONE (09:31)
[2016-12-16] MEDS: Multiple Vitamins Tab PO SCH (10:10)
--- NOTE | 2016-12-16 11:56 | HP ---
This is a 51-year-old female who has the chief complaint of weakness, fatigue, tiredness. The patien t had abdominal pain. She has chronic pancreatitis. The patient continues to drink and smoke despit e multiple advices to abstain from both. PHYSICAL EXAMINATION: GENERAL: The patient is awake, alert, oriented. VITAL SIGNS: Temperature 98, pulse 90. HEENT: Within normal limits. NECK: Supple. CHEST: Symmetrical. HEART: Regular. ABDOMEN: Soft. EXTREMITIES: No edema. The patient has acute pancreatitis, placed on bedrest, supportive care, IV fluids. ____. Kishore Walker MD cc: [id number] TT: 12/16/2016 10:47:57 tn 12/16/2016 10:55:08
--- NOTE | 2016-12-16 12:33 | CP.PCM.PN ---
Subjective - Date & Time of Evaluation Date of Evaluation: 12/16/16 Time of Evaluation: 07:30 - Subjective Subjective: Medicine Progress Note- Dr. Mora's Service: Patient seen and examined at bedside this AM. Patient in no acute distress asking to shower this AM. Patient reports she is feeling "alright" and that she needs her Ativan and pain medication. Patient sitting at side of bed brushing her hair and then ambulating without difficulty. In the AM, nursing reports patient was taking juice. NPO was reinforced. No acute events overnight as per nursing. Objective - Vital Signs/Intake and Output Vital Signs (last 24 hours): Temp Pulse Resp BP Pulse Ox 97.5 F L 87 20 144/80 97 12/16/16 08:00 12/16/16 08:00 12/16/16 08:00 12/16/16 08:00 12/16/16 08:00 Intake and Output: 12/16/16 12/16/16 06:59 18:59 Intake Total 2024 Balance 2024 - Medications Medications: Current Medications Folic Acid (Folic Acid) 1 mg PO DAILY [facility] Last Admin: 12/16/16 10:10 Dose: 1 mg Hydromorphone HCl (Dilaudid) 2 mg IVP Q4H PRN PRN Reason: Pain, moderate (4-7) Last Admin: 12/16/16 10:11 Dose: 2 mg Metronidazole (Flagyl) 100 mls @ 100 mls/hr IVPB Q8H [facility] Last Admin: 12/16/16 12:14 Dose: 100 mls/hr Sodium Chloride (Sodium Chloride 0.9%) 1,000 mls @ 150 mls/hr IV .Q6H40M [facility] Last Admin: 12/16/16 01:44 Dose: 150 mls/hr Ciprofloxacin (Cipro 400mg/200ml Dsw) 200 mls @ 133 mls/hr IVPB Q12H [facility] Last Admin: 12/16/16 07:43 Dose: 133 mls/hr Lorazepam (Ativan) 2 mg IVP Q6H PRN PRN Reason: Alcohol Withdrawal Last Admin: 12/16/16 08:36 Dose: 2 mg Metoclopramide HCl (Reglan) 10 mg IVP Q8H PRN PRN Reason: Nausea/Vomiting Multivitamins (Hexavitamin) 1 tab PO DAILY [facility] Last Admin: 12/16/16 10:10 Dose: 1 tab Nicotine (Nicoderm Cq) 1 patch TD DAILY [facility] Ondansetron HCl (Zofran Inj) 4 mg IVP Q6H PRN PRN Reason: Nausea/Vomiting Pantoprazole Sodium (Protonix Inj) 40 mg IVP DAILY [facility] Last Admin: 12/16/16 10:09 Dose: 40 mg Thiamine HCl (Vitamin B1 Tab) 100 mg PO DAILY [facility] Last Admin: 12/16/16 10:10 Dose: 100 mg - Labs Labs: 12/16/16 06:59 12/16/16 06:59 - Constitutional Appears: No Acute Distress - Head Exam Head Exam: NORMAL INSPECTION, NORMOCEPHALIC - Eye Exam Eye Exam: EOMI, Normal appearance - ENT Exam ENT Exam: Mucous Membranes Moist - Respiratory Exam Respiratory Exam: Clear to Ausculation Bilateral, NORMAL BREATHING PATTERN - Cardiovascular Exam Cardiovascular Exam: REGULAR RHYTHM, +S1, +S2 - GI/Abdominal Exam GI & Abdominal Exam: Soft. absent: Distended, Tenderness - Extremities Exam Extremities Exam: Full ROM, Normal Inspection - Neurological Exam Neurological Exam: Alert, Awake - Psychiatric Exam Psychiatric exam: Normal Affect, Normal Mood - Skin Skin Exam: Normal Color, Warm Assessment and Plan - Assessment and Plan (Free Text) Assessment: Pancreatitis/ Colitis Lipase on admission: [address] Abdomen/Pelvis- 12/15/16- Most of colon is decompressed, limiting evaluation for focal or diffuse pathology. Mild wall thickening may be out of proportion to underdistention, possible colitis. Questionable mild edematous appearance of the pancreatic head/uncinate process; correlate with amylase and lipase to exclude acute pancreatitis. Mild Patchy nodular opacity right lung base compatible with pneumonia Flagyl 500mg IVPB Q8h (started 12/15/16) Cipro 400mg IVPB Q12h (started 12/15/16) Reglan 10mg IVP Q8H PRN Dilaudid 2mg IV Q4H decreased to Q6H Alcohol abuse Ativan 2mg IVP Q6h PRN for withdrawal symptoms IVF NS @ 150cc/hr Thiamine 100mg PO Daily Multivitamin PO Daily Folic acid 1mg PO Daily Electolyte Imbalance Potassium and Mag replaced today. Prophylactic Measure SCDs Protonix 40mg IVP Daily Management as per Dr. Mora
[2016-12-17] MEDS: metroNIDAZOLE IV 500 mg/100 ml 100 ML IVPB SCH ×2 (02:30→09:35)
[2016-12-17 07:23] VITALS: BP 131/83; PULSE 76; TEMP 98.5; O2SAT 98
[2016-12-17] MEDS: Ciprofloxacin 400mg/200ml D5W 200 ML IVPB SCH (07:50)
[2016-12-17 08:26] LABS: BASO % 0.3 % (0.0-2.0); CHLORIDE 100 mmol/L (98-107); EOS # 0.1 K/uL (0.0-0.7); EOS % 1.9 % (0.0-4.0); HEMATOCRIT 38.9 % (34.0-47.0); LYMPH # 1.1 K/uL (1.0-4.3); LYMPH % 17.8 % (20.0-40.0); MEAN CORPUSCULAR HEMOGLOBIN 32.1 pg (27.0-31.0); MEAN CORPUSCULAR HGB CONC 33.1 g/dL (33.0-37.0); MEAN PLATELET VOLUME 9.1 fL (7.2-11.7); MONO # 0.3 K/uL (0.0-0.8); MONO % 4.3 % (0.0-10.0); RED CELL DISTRIBUTION WIDTH 13.1 % (11.5-14.5); WHITE BLOOD COUNT 5.9 K/uL (4.8-10.8)
[2016-12-17 08:27] LABS: POTASSIUM 3.3 mmol/L (3.6-5.2); SODIUM 136 mmol/L (132-148)
[2016-12-17 08:29] LABS: AST/SGOT 224 U/L (14-36); BILIRUBIN,TOTAL 1.6 mg/dL (0.2-1.3); CARBON DIOXIDE 25 mmol/L (22-30); GFR AFRICAN-AMERICAN > 60
[2016-12-17 08:30] LABS: ALB/GLOB RATIO 1.3 (1.0-2.1); ALKALINE PHOSPHATASE 76 U/L (38-126); ALT/SGPT 114 U/L (9-52); BLOOD UREA NITROGEN 7 mg/dL (7-17); CALCIUM 8.3 mg/dl (8.6-10.4); GLUCOSE,RANDOM 150 mg/dL (65-105); MAGNESIUM 1.4 mg/dL (1.6-2.3); PHOSPHOROUS 2.9 mg/dL (2.5-4.5); TOTAL PROTEIN 6.6 g/dL (6.3-8.3)
[2016-12-17] MEDS: Multiple Vitamins Tab PO SCH (09:36)
[2016-12-17] MEDS ORDERED: Potassium Chloride 20 mEq 100 ML IVPB ONE (10:28)
[2016-12-17] MEDS ORDERED: Potassium Chloride 20 mEq ER Tab PO ONE (10:32)
--- NOTE | 2016-12-17 11:46 | CP.PCM.PN ---
Subjective - Date & Time of Evaluation Date of Evaluation: 12/17/16 Time of Evaluation: 11:46 - Subjective Subjective: alert, awake, no vomiting, NAD. Objective - Vital Signs/Intake and Output Vital Signs (last 24 hours): Temp Pulse Resp BP Pulse Ox 98.5 F 76 20 131/83 98 12/17/16 07:20 12/17/16 08:00 12/17/16 07:20 12/17/16 07:20 12/17/16 07:20 Intake and Output: 12/17/16 12/17/16 06:59 18:59 Intake Total 1680 Balance 1680 - Medications Medications: Current Medications Folic Acid (Folic Acid) 1 mg PO DAILY [facility] Last Admin: 12/17/16 09:36 Dose: 1 mg Hydromorphone HCl (Dilaudid) 2 mg IVP Q6H PRN PRN Reason: Pain, severe (8-10) Last Admin: 12/17/16 11:02 Dose: 2 mg Metronidazole (Flagyl) 100 mls @ 100 mls/hr IVPB Q8H [facility] Last Admin: 12/17/16 09:35 Dose: 100 mls/hr Sodium Chloride (Sodium Chloride 0.9%) 1,000 mls @ 150 mls/hr IV .Q6H40M [facility] Last Admin: 12/16/16 15:40 Dose: 150 mls/hr Ciprofloxacin (Cipro 400mg/200ml Dsw) 200 mls @ 133 mls/hr IVPB Q12H [facility] Last Admin: 12/17/16 07:50 Dose: 133 mls/hr Lorazepam (Ativan) 2 mg IVP Q6H PRN PRN Reason: Alcohol Withdrawal Last Admin: 12/17/16 08:48 Dose: 2 mg Metoclopramide HCl (Reglan) 10 mg IVP Q8H PRN PRN Reason: Nausea/Vomiting Multivitamins (Hexavitamin) 1 tab PO DAILY [facility] Last Admin: 12/17/16 09:36 Dose: 1 tab Nicotine (Nicoderm Cq) 1 patch TD DAILY [facility] Last Admin: 12/17/16 09:36 Dose: 1 patch Ondansetron HCl (Zofran Inj) 4 mg IVP Q6H PRN PRN Reason: Nausea/Vomiting Pantoprazole Sodium (Protonix Inj) 40 mg IVP DAILY [facility] Last Admin: 12/17/16 09:36 Dose: 40 mg Thiamine HCl (Vitamin B1 Tab) 100 mg PO DAILY [facility] Last Admin: 12/17/16 09:36 Dose: 100 mg - Labs Labs: 12/17/16 08:07 12/17/16 08:07 Assessment and Plan - Assessment and Plan (Free Text) Assessment: Patient is seen and examined. Alert, no vomiting, discharge plan for home today. RX for percocet and ativan 10 tab each as per DR Mora given. To follow up in the office in 1 week. Advised to avoid alcohol and drink plenty of fluids.
--- NOTE | 2016-12-19 07:17 | DS ---
The patient is improving. Abdominal pain less. Tolerating diet. Discharge today. Kishore Walker MD cc: [id number] TT: 12/18/2016 10:17:20 en
--- NOTE | 2016-12-19 07:20 | PN ---
DATE: 12/17/2016 The patient will be discharged today, feeling better. Kishore Walker MD cc: [id number] TT: 12/18/2016 10:17:58 Confirmation # [id number] Dictation # [id number] en
== END 2016-12-17 17:20 | disposition home or self-care (01) | DRG 204 ==
LOC: C.ER 07:27 → C.9E 14:24 → C.3T 15:56
PROVIDERS: ADMIT Internal Medicine Pulmonary Disease; ATTEND Internal Medicine Pulmonary Disease
DX: K85.90 Acute pancreatitis without necrosis or infection, unspecified (principal); E83.42 Hypomagnesemia; F11.10 Opioid abuse, uncomplicated; E87.6 Hypokalemia; F10.10 Alcohol abuse, uncomplicated; K86.1 Other chronic pancreatitis; K52.9 Noninfective gastroenteritis and colitis, unspecified; Z87.11 Personal history of peptic ulcer disease; Z87.891 Personal history of nicotine dependence; Z68.1 Body mass index [BMI] 19.9 or less, adult

== ENCOUNTER 2017-01-29 21:58 | Inpatient (IN) | payer MEDICAID, OTHER ==
[2017-01-29 21:58] VITALS: BMI 18.2
[2017-01-29 23:00] LABS: BASO # 0.1 K/uL (0.0-0.2); BASO % 1.3 % (0.0-2.0); EOS # 0.1 K/uL (0.0-0.7); EOS % 1.9 % (0.0-4.0); HEMATOCRIT 41.3 % (34.0-47.0); LYMPH # 0.8 K/uL (1.0-4.3); MEAN CELL VOLUME 97.1 fL (81.0-99.0); MEAN PLATELET VOLUME 8.3 fL (7.2-11.7); MONO # 0.5 K/uL (0.0-0.8); MONO % 9.2 % (0.0-10.0); NRBC % 0.1 % (0.0-2.0); RED CELL DISTRIBUTION WIDTH 15.3 % (11.5-14.5); WHITE BLOOD COUNT 5.3 K/uL (4.8-10.8)
[2017-01-29 23:09] LABS: CHLORIDE 93 mmol/L (98-107); POTASSIUM 2.8 mmol/L (3.6-5.2); SODIUM 141 mmol/L (132-148)
[2017-01-29 23:11] LABS: ALB/GLOB RATIO 1.4 (1.0-2.1); ALKALINE PHOSPHATASE 72 U/L (38-126); AST/SGOT 172 U/L (14-36); BILIRUBIN,TOTAL 0.6 mg/dL (0.2-1.3); CARBON DIOXIDE 30 mmol/L (22-30); GFR AFRICAN-AMERICAN > 60; TOTAL PROTEIN 7.7 g/dL (6.3-8.3)
[2017-01-29 23:12] LABS: ALT/SGPT 115 U/L (9-52); BLOOD UREA NITROGEN 12 mg/dL (7-17); CALCIUM 9.3 mg/dl (8.6-10.4); GLUCOSE,RANDOM 146 mg/dL (65-105)
[2017-01-29] MEDS ORDERED: Sodium Chloride 0.9% 1,000 ML IV ONE (23:15)
--- NOTE | 2017-01-29 23:15 | C.PDOC ---
History Of Present Illness Pt presents with abdominal pain, Pt still drinks alcohol and has a history of alcohol abuse and pancreatitis. No f/c/n/v Time Seen by Provider: 01/29/17 23:15 Chief Complaint (Nursing): Abdominal Pain History Per: Patient History/Exam Limitations: no limitations Onset/Duration Of Symptoms: Days Current Symptoms Are (Timing): Still Present Context: Other (alcohol ) Severity: Moderate Pain Scale Rating Of: 4 Location Of Pain/Discomfort: Diffuse Radiation Of Pain To:: None Quality Of Discomfort: Dull, Aching Associated Symptoms: Nausea Exacerbating Factors: Other (alcohol) Alleviating Factors: None Last Bowel Movement: Today Recent travel outside of the [place] States: No Additional History Per: Patient Abnormal Vaginal Bleeding: No Past Medical History Reviewed: Historical Data, Nursing Documentation, Vital Signs Vital Signs: Last Vital Signs Temp 98.2 F 01/29/17 22:21 Pulse 86 01/29/17 22:21 Resp 14 01/29/17 22:21 BP 118/84 01/30/17 00:13 Pulse Ox 97 01/30/17 00:02 - Medical History PMH: Anxiety (denies), Bipolar Disorder (denies), Depression (denies), Diverticulitis, Gastritis, Gastrointestinal Ulcer, GERD, Kidney Stones, Pancreatitis, Chronic Pain (+Chronic lower back pain) Denies: Diabetes, Hepatitis, HIV, HTN (denies), Chronic Kidney Disease, Seizures, Sexually Transmitted Disease Surgical History: Endoscopy (Colonoscopy), Tonsillectomy - [facility] DETOXIFICATION SERVICES FOR SUBSTANCE ABUSE TREATMENT (11/27/16) EXCISION OF STOMACH, ENDO, DIAGN (06/01/16) GROUP ROOFING FOREMAN FOR SUBSTANCE ABUSE TREATMENT, PSYCHOEDUCATION (10/17/16) GROUP PSYCHOTHERAPY (01/26/16) INDIV ROOFING FOREMAN FOR SUBSTANCE ABUSE TREATMENT, PSYCHOEDUCATION (10/17/16) INDIV ROOFING FOREMAN FOR SUBSTANCE ABUSE, COGNITIVE BEHAVIORAL (10/17/16) INDIV PSYCHOTHERAPY FOR SUBSTANCE ABUSE TREATMENT, SUPPORT (11/27/16) INDIV PSYCHOTHERAPY FOR SUBSTANCE ABUSE, COGNITIV BEHAVIORAL (11/27/16) INDIV PSYCHOTHERAPY FOR SUBSTANCE ABUSE, PSYCHOEDUCATION (10/17/16) INDIVIDUAL PSYCHOTHERAPY, SUPPORTIVE (01/26/16) INJECT/INFUSE NEC (04/10/15) MEDS MGMT FOR SUBSTANCE ABUSE TREATMENT, METHADONE MAINT (01/26/16) Family History: States: No Known Family Hx - Social History Hx Tobacco Use: Yes Hx Alcohol Use: Yes (pt denies) Hx Substance Use: Yes (pt denies) - Immunization History Hx Tetanus Toxoid Vaccination: Yes Hx Influenza Vaccination: Yes Hx Pneumococcal Vaccination: Yes Review Of Systems Constitutional: Negative for: Fever, Chills Eyes: Negative for: Redness ENT: Negative for: Throat Pain Cardiovascular: Negative for: Chest Pain, Palpitations Respiratory: Negative for: Shortness of Breath Gastrointestinal: Positive for: Abdominal Pain. Negative for: Nausea, Vomiting Genitourinary: Negative for: Dysuria Musculoskeletal: Negative for: Back Pain Skin: Negative for: Rash, Lesions, Jaundice, Bruising Neurological: Negative for: Weakness Psych: Negative for: Anxiety Physical Exam - Physical Exam Appears: Non-toxic, No Acute Distress Skin: Warm, Dry Head: Normacephalic Eye(s): bilateral: Normal Inspection Oral Mucosa: Moist Neck: Trachea Midline, Supple Chest: Symmetrical Cardiovascular: Rhythm Regular Respiratory: No Rales, No Rhonchi, No Wheezing Gastrointestinal/Abdominal: Bowel Sounds (tympanic to percussion), Soft, Tenderness, No Distention, No Guarding, No Rebound Back: Normal Inspection Extremity: Normal ROM Extremity: Bilateral: Atraumatic Neurological/Psych: Oriented x3, Normal Speech, Normal Cognition Gait: Steady ED Course And Treatment - Laboratory Results Result Diagrams: 01/29/17 22:58 01/29/17 22:58 O2 Sat by Pulse Oximetry: 97 Pulse Ox Interpretation: Normal Progress Note: blood work, protonix, kcl Disposition Discussed With DrLinnette: Wyatt Castro Comment: accepted the pt on his service and took over the care at 12:44 AM Doctor Will See Patient In The: ED Counseled Patient/Family Regarding: Studies Performed, Diagnosis - Disposition Disposition: HOSPITALIZED Disposition Time: 23:15 Condition: FAIR - POA Present On Arrival: Poor Glycemic Control - Clinical Impression Clinical Impression: Abdominal pain, Pancreatitis, Alcohol use disorder, severe, dependence Decision To Admit - Pt Status Changed To: Hospital Disposition Of: Inpatient - Admit Certification Admit to Inpatient:: After my assessment, the patient will require hospitalization for at least two midnights. This is because of the severity of symptoms shown, intensity of services needed, and/or the medical risk in this patient being treated as an outpatient. - InPatient: Physician Admission Certification:: After my assessment, the patient will require hospitalization for at least two midnights. This is because of the severity of symptoms shown, intensity of services needed, and/or the medical risk in this patient being treated as an outpatient. - . Bed Request Type: Regular Admitting Physician: Wyatt Castro Patient Diagnosis: Abdominal pain, Pancreatitis, Alcohol use disorder, severe, dependence
[2017-01-29] MEDS ORDERED: Sodium Chloride 0.9% 1,000 ML ONE (23:21)
[2017-01-29 23:45] LABS: RBC URINE < 1 /hpf (0-3); URINE BACTERIA OCC (<OCC); URINE BILIRUBIN NEGATIVE (NEGATIVE); URINE BLOOD NEGATIVE (NEGATIVE); URINE COLOR Yellow (YELLOW); URINE GLUCOSE (UA) NORMAL (Normal); URINE KETONE NEGATIVE (NEGATIVE); URINE LEUKOCYTE ESTERASE NEG Leu/uL (Negative); URINE PROTEIN 1+ mg/dL (NEGATIVE); WBC URINE 2 /hpf (0-5)
[2017-01-29] MEDS ORDERED: Potassium Chloride 10 mEq ER Tab PO STA (23:54)
[2017-01-30] MEDS ORDERED: Potassium Chloride 10 mEq ER Tab PO ONE ×2 (00:02→02:11)
[2017-01-30] MEDS ORDERED: Oxycodone/Acetaminophen 5/325 mg Tab ONE ×2 (00:02→00:17)
[2017-01-30] MEDS: Oxycodone/Acetaminophen 5/325 mg Tab PO STA ×2 (00:07→00:21)
--- NOTE | 2017-01-30 00:47 | CP.PCM.HP ---
<Haja Price - Last Filed: 01/30/17 03:03> History of Present Illness - History of Present Illness History of Present Illness: HPI: Patient is a 51 year old female, with PMHx of alcohol and heroin abuse , chronic pancreatitis, and depression, who presents to [facility] ED with abdominal pain, nausea and vomiting. Patient reports she has this pain "nearly every day" but has been getting worse over the last few days. She describes the pain as intermittent, diffuse abdominal pain, worst in the epigastric/LUQ region , which occasionally radiates to her back, that she rates as 10/10 on the severity scale. Pt denies pain is related to food intake, though she reports being unable to eat for the past few days due this pain, but has been able to drink 1 pint of vodka daily for "many years." Pt admits abdominal pain associated with multiple episodes of vomiting this AM, producing a "yellow/ green emesis" without blood. She admits taking her "stomach meds - Protonix, Reglan, Pepcid" daily but with no relief. She admits to 40 lb weight loss in last year. Patient has history of multiple admissions for pancreatitis, alcohol and opioid abuse. Last admitted for pancreatitis in December of 2016. Patient denies depressed mood, but admits to anxiety and feeling "overwhelmed". A. She denies chest pain, palpitations, diarrhea, constipation, SOB, fevers, headaches , dysuria, hematuria, hematochezia, hemoptysis. Denies SI/HI. She would like entry into detox program, if available, once stable. PMHx:alcohol and heroin abuse, chronic pancreatitis, depression. Medications: Protonix, Reglan, Pepcid Allergies: NKDA Surgeries: Adenoids Family Hx: mother with BCA, ovarian CA, colon CA. Grandmother with NC, colon CA. PMD: none, last seen at [facility]. Present on Admission - Present on Admission Any Indicators Present on Admission: No Review of Systems - Constitutional Constitutional: Weight Loss (40 lbs in one year). absent: Chills, Fever - EENT Eyes: absent: Blurred Vision, Change in Vision Ears: absent: Decreased Hearing - Cardiovascular Cardiovascular: absent: Chest Pain, Chest Pain at Rest, Dyspnea - Respiratory Respiratory: absent: Cough, Dyspnea - Gastrointestinal Gastrointestinal: Abdominal Pain, Constipation, Vomiting (multiple episodes, bilious, non-bloody). absent: Diarrhea - Genitourinary Genitourinary: absent: Dysuria - Reproductive: Female Reproductive:Female: Post Menopausal - Musculoskeletal Musculoskeletal: absent: Numbness, Tingling - Integumentary Integumentary: absent: Rash - Neurological Neurological: absent: Numbness, Tingling, Weakness - Endocrine Endocrine: absent: Polydipsia, Polyphagia, Polyuria Past Patient History - Infectious Disease Hx of Infectious Diseases: None - Past Medical History & Family History Past Medical History?: Yes - Past Social History Smoking Status: Light Smoker < 10 Cigarettes Daily - CARDIAC Hx Hypertension: No (denies) - PULMONARY Hx Respiratory Disorders: No - NEUROLOGICAL Hx Seizures: No - HEENT Hx HEENT Problems: No - RENAL Hx Chronic Kidney Disease: No Hx Kidney Stones: Yes - ENDOCRINE/METABOLIC Hx Endocrine Disorders: No - HEMATOLOGICAL/ONCOLOGICAL Hx Human Immunodeficiency Virus (HIV): No - INTEGUMENTARY Hx Dermatological Problems: No - MUSCULOSKELETAL/RHEUMATOLOGICAL Hx Back Pain: Yes (fracture x2) Hx Falls: No - GASTROINTESTINAL Hx Diverticulitis: Yes Hx Gastritis: Yes Hx Pancreatitis: Yes - GENITOURINARY/GYNECOLOGICAL Hx Sexually Transmitted Disorders: No - PSYCHIATRIC Hx Anxiety: Yes (denies) Hx Bipolar Disorder: Yes (denies) Hx Depression: Yes (denies) Hx Substance Use: Yes (pt denies) - SURGICAL HISTORY Hx Tonsillectomy: Yes - ANESTHESIA Hx Anesthesia: Yes Hx Anesthesia Reactions: No Hx Malignant Hyperthermia: No Meds Allergies/Adverse Reactions: Allergies Allergy/AdvReac Type Severity Reaction Status Date / Time No Known Allergies Allergy Verified 01/29/17 22:25 Physical Exam - Constitutional Appears: Non-toxic, No Acute Distress - Head Exam Head Exam: ATRAUMATIC, NORMOCEPHALIC - Eye Exam Eye Exam: EOMI. absent: Scleral icterus Pupil Exam: PERRL - ENT Exam ENT Exam: Mucous Membranes Moist - Respiratory Exam Respiratory Exam: Clear to Auscultation Bilateral, NORMAL BREATHING PATTERN. absent: Rhonchi, Wheezes - Cardiovascular Exam Cardiovascular Exam: REGULAR RHYTHM, +S1, +S2 - GI/Abdominal Exam GI & Abdominal Exam: Normal Bowel Sounds, Soft, Tenderness (worst LUQ, epigastric, negative sullivan/rovsing,). absent: Distended, Firm, Guarding - Back Exam Back exam: absent: CVA tenderness (L), CVA tenderness (R) - Neurological Exam Neurological exam: Alert, Oriented x3 - Psychiatric Exam Psychiatric exam: Normal Affect, Normal Mood - Skin Skin Exam: Normal Color, Warm Results - Vital Signs Recent Vital Signs: Last Vital Signs Temp 98.2 F 01/29/17 22:21 Pulse 86 01/29/17 22:21 Resp 14 01/29/17 22:21 BP 118/84 01/30/17 00:13 Pulse Ox 97 01/30/17 00:02 - Labs Result Diagrams: 01/29/17 22:58 01/29/17 22:58 Labs: Laboratory Results - last 24 hr 01/29/17 01/29/17 01/29/17 22:58 22:58 23:39 WBC 5.3 RBC 4.26 Hgb 14.0 Hct 41.3 MCV 97.1 MCH 33.0 H MCHC 34.0 RDW 15.3 H Plt Count 195 MPV 8.3 Neut % (Auto) 72.6 Lymph % (Auto) 15.0 L [place] % (Auto) 9.2 Eos % (Auto) 1.9 Baso % (Auto) 1.3 Neut # 3.8 Lymph # 0.8 L [place] # 0.5 Eos # 0.1 Baso # 0.1 Sodium 141 Potassium 2.8 L Chloride 93 L Carbon Dioxide 30 Anion Gap 21 H BUN 12 Creatinine 0.6 L Est GFR ( Amer) > 60 Est GFR (Non-Af Amer) > 60 Random Glucose 146 H Calcium 9.3 Total Bilirubin 0.6 AST 172 H D ALT 115 H Alkaline Phosphatase 72 Total Protein 7.7 Albumin 4.4 Globulin 3.2 Albumin/Globulin Ratio 1.4 Lipase 740 H Urine Color Yellow Urine Clarity Hazy Urine pH 6.0 Ur Specific [place] 1.012 Urine Protein 1+ H Urine Glucose (UA) Normal Urine Ketones Negative Urine Blood Negative Urine Nitrate Negative Urine Bilirubin Negative Urine Urobilinogen 2.0 H Ur Leukocyte Esterase Neg Urine WBC (Auto) 2 Urine RBC (Auto) < 1 Ur Squamous Epith Cells 4 Urine Bacteria Occ H Hyaline Casts 6-10 H Urine HCG, Qual Negative Alcohol, Quantitative 01/29/17 23:55 WBC RBC Hgb Hct MCV MCH MCHC RDW Plt Count MPV Neut % (Auto) Lymph % (Auto) [place] % (Auto) Eos % (Auto) Baso % (Auto) Neut # Lymph # [place] # Eos # Baso # Sodium Potassium Chloride Carbon Dioxide Anion Gap BUN Creatinine Est GFR ( Amer) Est GFR (Non-Af Amer) Random Glucose Calcium Total Bilirubin AST ALT Alkaline Phosphatase Total Protein Albumin Globulin Albumin/Globulin Ratio Lipase Urine Color Urine Clarity Urine pH Ur Specific [place] Urine Protein Urine Glucose (UA) Urine Ketones Urine Blood Urine Nitrate Urine Bilirubin Urine Urobilinogen Ur Leukocyte Esterase Urine WBC (Auto) Urine RBC (Auto) Ur Squamous Epith Cells Urine Bacteria Hyaline Casts Urine HCG, Qual Alcohol, Quantitative 126 H Assessment & Plan - Assessment and Plan (Free Text) Assessment: 51 year old female, with PMHx of alcohol use disorder, and recurrent pancreatitis, presenting with abdominal pain/nausea. Elevated lipase indicating pancreatitis. Plan: (1) Abdominal pain Patient with history of pancreatitis and alcohol/opioid abuse. Possible withdrawal component. Lipase on admission 390. Patient had EGD 05/2016 which showed hiatal hernia, gastritis and duodenitis. Pt NPO except medications IV fluids- LR @ 250cc/hr Pain: IV Morphine 1 mg IVP Q4H PRN Ativan 1mg IVP Q3H PRN (2) Vomiting Zofran 40 IVP Q6H PRN Replace electrolytes as needed f/u CMP, Mg and Phos in the AM. (3) Alcohol abuse Psych consult- Dr. Siegel- help appreciated Thiamine IVP 100 mg PO daily Ativan 1 mg IVP Q3H PRN f/u recommendations Seizure precautions Aspiration precautions Withdrawal checks Q1H (4) Heroin abuse Psych consult- Dr. Jimenez- help appreciated Ativan 1 mg IVP Q3H PRN f/u recommendations Seizure precautions Aspiration precautions Withdrawal checks Q1H (5) Transaminitis Likely secondary to alcohol abuse. As per GI workup on admission: ASMA - positive, AMA - negative, TANMAY - negative, Hepatitis Panel negative. f/u LFTs in the AM (6) Major depression Psych consult- Dr. Jimenez- help appreciated No current SI/HI (7) Hypokalemia K+ on admission 2.8 Kdur 20 mEq PO in the ED. Kdur 40mg PO x 2 IV fluids- LR @ 250cc/hr f/u Mag and CMP in the AM (8) Tobacco abuse disorder Assessment and Plan: Nicoderm patch (9) Prophylactic measure Assessment and Plan: Protonix 40 mg IVP daily Heparin 5000 units Q12H SCD[facility] <Wyatt Castro - Last Filed: 01/30/17 06:16> Results - Vital Signs Recent Vital Signs: Last Vital Signs Temp 98.0 F 01/30/17 04:00 Pulse 86 01/30/17 04:00 Resp 20 01/30/17 04:00 BP 139/86 01/30/17 04:00 Pulse Ox 100 01/30/17 04:00 - Labs Result Diagrams: 01/29/17 22:58 01/29/17 22:58 Assessment & Plan - Date & Time Date: 01/30/17 (I have seen and examined the patient. I agree with the findings and plan of care as documented by Dr. Price. Patient with pancreatitis. Likely alcohol induced. NPO and IVF. Symptomatic treatment. Alcohol and heroin abuse. Consult to psych. CIWA protocol. Monitor for withdrawal symptoms. Monitor for acute changes.) Time: 06:14
[2017-01-30] MEDS ORDERED: FOLIC ACID IV SCH (01:45)
[2017-01-30] MEDS ORDERED: [UNRECOGNIZED DRUG - OTHER] IV SCH (01:45)
[2017-01-30] MEDS ORDERED: THIAMINE IV SCH (01:45)
[2017-01-30] MEDS ORDERED: MULTIVITAMIN IV SCH (01:45)
[2017-01-30] MEDS ORDERED: Lactated Ringer's 1,000 ML IV SCH (01:45)
[2017-01-30] MEDS: Potassium Chloride 20 mEq ER Tab PO SCH ×2 (02:18→04:00)
[2017-01-30] MEDS: Lactated Ringer's 1,000 ML IV SCH ×3 (04:00→11:55)
[2017-01-30 06:32] LABS: CHLORIDE 95 mmol/L (98-107)
[2017-01-30 06:33] LABS: POTASSIUM 3.9 mmol/L (3.6-5.2); SODIUM 136 mmol/L (132-148)
[2017-01-30 06:35] LABS: BILIRUBIN,TOTAL 0.9 mg/dL (0.2-1.3); GFR AFRICAN-AMERICAN > 60
[2017-01-30 06:36] LABS: ALB/GLOB RATIO 1.3 (1.0-2.1); ALKALINE PHOSPHATASE 77 U/L (38-126); ALT/SGPT 98 U/L (9-52); AST/SGOT 128 U/L (14-36); BLOOD UREA NITROGEN 13 mg/dL (7-17); CALCIUM 9.1 mg/dl (8.6-10.4); CARBON DIOXIDE 28 mmol/L (22-30); GLUCOSE,RANDOM 169 mg/dL (65-105); PHOSPHOROUS 3.5 mg/dL (2.5-4.5); TOTAL PROTEIN 7.3 g/dL (6.3-8.3)
[2017-01-30 06:59] LABS: BASO # 0.1 K/uL (0.0-0.2); BASO % 0.9 % (0.0-2.0); EOS # 0.1 K/uL (0.0-0.7); EOS % 1.8 % (0.0-4.0); HEMATOCRIT 37.9 % (34.0-47.0); LYMPH # 1.5 K/uL (1.0-4.3); LYMPH % 23.4 % (20.0-40.0); MEAN CELL VOLUME 97.9 fL (81.0-99.0); MEAN CORPUSCULAR HEMOGLOBIN 33.7 pg (27.0-31.0); MEAN CORPUSCULAR HGB CONC 34.4 g/dL (33.0-37.0); MEAN PLATELET VOLUME 9.1 fL (7.2-11.7); MONO # 0.7 K/uL (0.0-0.8); NRBC % 0.1 % (0.0-2.0); RED CELL DISTRIBUTION WIDTH 14.9 % (11.5-14.5); WHITE BLOOD COUNT 6.5 K/uL (4.8-10.8)
[2017-01-30] MEDS: Magnesium Sulfate 1 gm in D5W 1 GM/100 ML BAG IVPB SCH ×2 (08:14→10:03)
[2017-01-30 13:56] VITALS: RESP 20
[2017-01-30] MEDS: MULTIVITAMIN IV SCH ×2 (16:30→23:21)
[2017-01-30] MEDS: [UNRECOGNIZED DRUG - OTHER] IV SCH ×2 (16:30→23:21)
[2017-01-30] MEDS: THIAMINE IV SCH ×2 (16:30→23:21)
[2017-01-30] MEDS: FOLIC ACID IV SCH ×2 (16:30→23:21)
--- NOTE | 2017-01-30 19:45 | PCM.PSYCH ---
Initial Psychiatric Evaluation - Initial Psychiatric Evaluation Type of Admission: Voluntary Legal Status: Capacity Chief Complaint (in patient's own words): I'm here for the treatment of pancreatitis History of Present Illness and Precipitating Events: Patient is a 51 years old, , female with no previous psychiatric history. Patient was admitted to medical floor for the treatment of acute pancreatitis. Patient also has history of alcohol and opiate use. Psych consult was called and patient was evaluated on medical floor. Patient reported no psychiatric history. Reported she started drinking alcohol at the age of 17 years, increased gradually and currently she was drinking 1 pint of vodka daily. Her last drink of alcohol reported yesterday. History of 2 previous detox and one rehabilitation. Reported she had detox here at [facility]. Also reported that she was taking oxycodone and Percocet for her abdominal pain. Last use reported 2 days ago. Reported she is not abusing opiates. Patient was born in [place]. Has GED. Not working for last 7 months. She supported by friends. She lives with friends and also in shelters. She is a and has 1 grown up son. Current Medications: Active Medications Generic Name Dose Route Start Last Admin Trade Name Freq PRN Reason Stop Dose Admin Heparin Sodium (Porcine) 5,000 units 01/30/17 10:00 01/30/17 10:03 Heparin SC 5,000 units Q12H JAN Administration Lactated Ringer's 1,000 mls @ 150 mls/hr 01/30/17 16:39 Lactated Ringer's IV .Q6H40M JAN Folic Acid 1 mg/ Thiamine HCl 1,011.2 mls @ 100 mls/hr 01/30/17 18:30 100 mg/ Multivitamins/Vitamin IV C 10 ml/ Lactated Ringer's DAILY@1830 JAN Lorazepam 1 mg 01/30/17 01:36 01/30/17 18:39 Ativan IVP 1 mg Q3H PRN Administration Symptoms of alcohol withdrawl Morphine Sulfate 2 mg 01/30/17 13:02 01/30/17 18:11 Morphine IVP 2 mg Q2 PRN Administration Pain, moderate (4-7) Nicotine 1 patch 01/30/17 10:00 01/30/17 10:03 Nicoderm Cq TD 1 patch DAILY JAN Administration Ondansetron HCl 4 mg 01/30/17 01:46 Zofran Inj IVP Q6H PRN Nausea/Vomiting Pantoprazole Sodium 40 mg 01/30/17 10:00 01/30/17 10:03 Protonix Inj IVP 40 mg DAILY JAN Administration Past Psychiatric History - Past Psychiatric History Previous Treatment History: None History of Abuse: None reported History of ETOH/Drug Use: See HPI History of Family Illness: Reported history of alcohol use in her mother and a history of opiate use in her aunt Pertinent Medical Hx (Current Medical&Sleep Prob, Allergies): Allergies Allergy/AdvReac Type Severity Reaction Status Date / Time No Known Allergies Allergy Verified 01/29/17 22:25 Pantoprazole [Protonix EC Tab] 20 mg PO DAILY #30 ect 10/20/16 Docusate [Colace] 100 mg PO BID #60 cap 12/01/16 Folic Acid 1 mg PO DAILY #30 tab 12/01/16 Gabapentin 100 mg PO BID #60 capsule 12/01/16 Multivitamins [Hexavitamin] 1 tab PO DAILY #30 tab 12/01/16 Thiamine [Vitamin B1 Tab] 100 mg PO DAILY #30 tab 12/01/16 cloNIDine 0.1 mg/24 hr [catapres TTS1 0.1 mg/24 hr] 1 patch TD Q7D@1000 #30 patch 12/01/16 LORazepam [Ativan] 2 mg PO ONCE #10 tab 12/17/16 Oxycodone HCl/Acetaminophen [Oxycodone-Acetaminophen 5-325] 1 each PO Q12H PRN # 10 tablet 12/17/16 Pancreatitis Review of Systems - Psychiatric Psychiatric: Other Mental Status Examination - Personal Presentation Personal Presentation: Looks stated age - Affect Affect: Other - Motor Activity Motor Activity: Calm - Reliability in Providing Information Reliability in Providing Information: Fair - Speech Speech: Organized - Mood Mood: Neutral - Formal Thought Process Formal Thought Process: No Impairment - Hallucinations/Delusions Hallucinations: Other (None reported) Delusions: Other - Obsessions/Compulsions Obsessions: None Compulsions: None - Cognitive Functions Orientation: Person, Place, Situation, Time Sensorium: Alert Attention/Concentration: Attentive Abstract Thinking: [place] Estimate of Intelligence: Average Judgement: Intact, as evidence by: Insight regarding need for hospitalization Memory: Recent intact, as evidence by: 3/3 object recall, Remote intact, as evidenced by: Ability to recall historical events - Risk Risk: Withdrawal, Diminished functioning - Strength & Assets Inventory Strength & Assets Inventory: Cooperative - Limitations Limitations: Other DSM 5 DX - DSM 5 DSM 5 Diagnosis: Alcohol use disorder Alcohol withdrawal - Recommended/Plan of Treatment Treatment Recommendations and Plan of Treatment: Patient education Supportive therapy Treatment as per medicine Continue treatment with Ativan for alcohol withdrawal - Smoking Cessation Smoking Cessation Initiated: No Reason for not providing: Patient doesn't smoke cigarettes
[2017-01-31] MEDS: Lactated Ringer's 1,000 ML IV SCH ×3 (00:30→19:19)
[2017-01-31 08:27] LABS: BASO # 0.1 K/uL (0.0-0.2); BASO % 1.3 % (0.0-2.0); EOS # 0.1 K/uL (0.0-0.7); HEMATOCRIT 36.3 % (34.0-47.0); LYMPH # 0.9 K/uL (1.0-4.3); LYMPH % 18.3 % (20.0-40.0); MEAN CELL VOLUME 97.7 fL (81.0-99.0); MEAN CORPUSCULAR HEMOGLOBIN 33.2 pg (27.0-31.0); MEAN CORPUSCULAR HGB CONC 33.9 g/dL (33.0-37.0); MEAN PLATELET VOLUME 9.4 fL (7.2-11.7); MONO # 0.5 K/uL (0.0-0.8); MONO % 9.1 % (0.0-10.0)
[2017-01-31 08:32] LABS: CHLORIDE 97 mmol/L (98-107); POTASSIUM 4.4 mmol/L (3.6-5.2); SODIUM 135 mmol/L (132-148)
[2017-01-31 08:34] LABS: ALB/GLOB RATIO 1.2 (1.0-2.1); AST/SGOT 52 U/L (14-36); BILIRUBIN,TOTAL 0.7 mg/dL (0.2-1.3); CARBON DIOXIDE 27 mmol/L (22-30); GFR AFRICAN-AMERICAN > 60; TOTAL PROTEIN 6.2 g/dL (6.3-8.3)
[2017-01-31 08:35] LABS: ALKALINE PHOSPHATASE 73 U/L (38-126); ALT/SGPT 57 U/L (9-52); BLOOD UREA NITROGEN 7 mg/dL (7-17); CALCIUM 8.8 mg/dl (8.6-10.4); GLUCOSE,RANDOM 152 mg/dL (65-105); PHOSPHOROUS 3.1 mg/dL (2.5-4.5)
[2017-01-31 08:36] LABS: MAGNESIUM 1.2 mg/dL (1.6-2.3)
--- NOTE | 2017-01-31 08:59 | CP.PCM.PN ---
<Lilian Ngo - Last Filed: 01/31/17 10:29> Subjective - Date & Time of Evaluation Date of Evaluation: 01/31/17 Time of Evaluation: 07:10 - Subjective Subjective: Patient seen and examined at bedside this morning. She is requesting Dilaudid and said that she needs more pain medications. She is now tolerating full diet and has been seen walking around the hallways. She reports being anxious with slight tremors.She states that she is always constipation and had not has a BM for a couple days. She would like something to help her go to the bathroom. She has no other complaints. Objective - Vital Signs/Intake and Output Vital Signs (last 24 hours): Temp Pulse Resp BP Pulse Ox 97.6 F 73 20 137/88 100 01/31/17 08:22 01/31/17 08:22 01/31/17 08:22 01/31/17 08:22 01/31/17 08:22 - Medications Medications: Current Medications Heparin Sodium (Porcine) (Heparin) 5,[address] [facility] Last Admin: 01/30/17 21:47 Dose: 5,000 units Lactated Ringer's (Lactated Ringer's) 1,000 mls @ 150 mls/hr IV .Q6H40M [facility] Last Admin: 01/31/17 06:47 Dose: Not Given Folic Acid 1 mg/ Thiamine HCl 100 mg/ Multivitamins/Vitamin C 10 ml/ Lactated Ringer's 1,011.2 mls @ 100 mls/hr IV DAILY@1830 [facility] Last Admin: 01/30/17 23:21 Dose: 100 mls/hr Magnesium Sulfate/Dextrose (Magnesium Sulfate 1 Gm/100 Ml D5w) 1 gm in 100 mls @ 300 mls/hr IVPB Q1 [facility] Stop: 01/31/17 11:19 Lactulose (Enulose) [address] [facility] Lorazepam (Ativan) 1 mg IVP Q3H PRN PRN Reason: Symptoms of alcohol withdrawl Last Admin: 01/31/17 05:32 Dose: 1 mg Morphine Sulfate (Morphine) 2 mg IVP Q2 PRN PRN Reason: Pain, moderate (4-7) Last Admin: 01/31/17 06:45 Dose: 2 mg Nicotine (Nicoderm Cq) [address] [facility] Last Admin: 01/30/17 10:03 Dose: 1 patch Ondansetron HCl (Zofran Inj) 4 mg IVP Q6H PRN PRN Reason: Nausea/Vomiting Pantoprazole Sodium (Protonix Inj) 40 mg IVP DAILY JAN Last Admin: 01/30/17 10:03 Dose: 40 mg - Labs Labs: 01/31/17 08:07 01/31/17 08:07 PT 10.9 SECONDS (9.7-12.2) 01/29/17 23:55 INR 1.0 01/29/17 23:55 APTT 30 SECONDS (21-34) 01/29/17 23:55 - Constitutional Appears: Non-toxic, No Acute Distress - Head Exam Head Exam: ATRAUMATIC, NORMAL INSPECTION - Eye Exam Eye Exam: EOMI, Normal appearance - ENT Exam ENT Exam: Mucous Membranes Moist - Respiratory Exam Respiratory Exam: Clear to Ausculation Bilateral, NORMAL BREATHING PATTERN. absent: Accessory Muscle Use, Rales, Rhonchi, Wheezes, Respiratory Distress - Cardiovascular Exam Cardiovascular Exam: REGULAR RHYTHM, +S1, +S2 - GI/Abdominal Exam GI & Abdominal Exam: Soft, Tenderness (mild, in all 4 quadrants worse epigastric ), Normal Bowel Sounds. absent: Distended, Firm, Guarding - Extremities Exam Extremities Exam: Normal Inspection. absent: Calf Tenderness, Pedal Edema - Back Exam Back Exam: NORMAL INSPECTION. absent: CVA tenderness (L), CVA tenderness (R), paraspinal tenderness - Neurological Exam Neurological Exam: Alert, Awake, Oriented x3 Additional comments: mild tremors - Psychiatric Exam Psychiatric exam: Anxious - Skin Skin Exam: Dry, Intact, Normal Color, Warm Assessment and Plan - Assessment and Plan (Free Text) Assessment: 51 year old female, with PMHx of alcohol use disorder, and recurrent pancreatitis, presenting with abdominal pain/nausea. Elevated lipase indicating pancreatitis. Plan: Abdominal pain Patient with history of pancreatitis and alcohol/opioid abuse. Possible withdrawal component. Lipase on admission 390. Patient had EGD 05/2016 which showed hiatal hernia, gastritis and duodenitis. Tolerating soft regular diet IV fluids- LR @ 150cc/hr Pain: IV Morphine 2 mg IVP Q4H PRN Ativan 1mg IVP Q3H PRN Vomiting Resolved Zofran 40 IVP Q6H PRN Replace electrolytes as needed Alcohol abuse Psych consult- Dr. Christal- help appreciated Thiamine IVP 100 mg PO daily Ativan 1 mg IVP Q3H PRN f/u recommendations Seizure precautions Aspiration precautions Withdrawal checks Q1H Heroin abuse Psych consult- Dr. Jimenez- help appreciated Ativan 1 mg IVP Q3H PRN f/u recommendations Seizure precautions Aspiration precautions Withdrawal checks Q1H Transaminitis Likely secondary to alcohol abuse. As per GI workup on admission: ASMA - positive, AMA - negative, TANMAY - negative, Hepatitis Panel negative. LFTS chronically elevated but downtrending today Major depression Psych consult- Dr. Jimenez- help appreciated No current SI/HI Hypokalemia K+ on admission 2.8, normal today Mg = 1.2, will replace with 3-4 grams IV today Tobacco abuse disorder Assessment and Plan: Nicoderm patch Prophylactic measure Assessment and Plan: Protonix 40 mg IVP daily Heparin 5000 units Q12H SCDs Soft full diet IV fluids- LR @ 150 cc/hr <Adeel Del Cid - Last Filed: 01/31/17 11:51> Objective - Vital Signs/Intake and Output Vital Signs (last 24 hours): Temp Pulse Resp BP Pulse Ox 97.6 F 73 20 137/88 100 01/31/17 08:22 01/31/17 08:22 01/31/17 08:22 01/31/17 08:22 01/31/17 08:22 - Medications Medications: Current Medications Heparin Sodium (Porcine) (Heparin) 5,[address] [facility] Last Admin: 01/31/17 09:37 Dose: 5,000 units Lactated Ringer's (Lactated Ringer's) 1,000 mls @ 150 mls/hr IV .Q6H40M [facility] Last Admin: 01/31/17 06:47 Dose: Not Given Folic Acid 1 mg/ Thiamine HCl 100 mg/ Multivitamins/Vitamin C 10 ml/ Lactated Ringer's 1,011.2 mls @ 100 mls/hr IV DAILY@1830 [facility] Last Admin: 01/30/17 23:21 Dose: 100 mls/hr Lactulose (Enulose) [address] [facility] Lorazepam (Ativan) 1 mg IVP Q3H PRN PRN Reason: Symptoms of alcohol withdrawl Last Admin: 01/31/17 09:25 Dose: 1 mg Morphine Sulfate (Morphine) 2 mg IVP Q2 PRN PRN Reason: Pain, moderate (4-7) Last Admin: 01/31/17 06:45 Dose: 2 mg Nicotine (Nicoderm Cq) [address] [facility] Last Admin: 01/30/17 10:03 Dose: 1 patch Ondansetron HCl (Zofran Inj) 4 mg IVP Q6H PRN PRN Reason: Nausea/Vomiting Pantoprazole Sodium (Protonix Inj) [address] [facility] Last Admin: 01/31/17 09:35 Dose: 40 mg - Labs Labs: 01/31/17 08:07 01/31/17 08:07 PT 10.9 SECONDS (9.7-12.2) 01/29/17 23:55 INR 1.0 01/29/17 23:55 APTT 30 SECONDS (21-34) 01/29/17 23:55 Attending/Attestation - Attestation I have personally seen and examined this patient.: Yes I have fully participated in the care of the patient.: Yes I have reviewed all pertinent clinical information, including history, physical exam and plan: Yes Notes (Text): 01/31/17 11:47 Medical Attending: Patient was seen and examined by me. Agree with the above note by the resident. We saw patient together Our entire conversation with the patient was about IV Dilaudid. She said she did not want the morphine and only IV Dilaudid since she says she normally takes 3 mg IV Q4 hrs. We frankly told her this was a large dangerous amount and that it would not be given. She is currently on IV morphine 2mg. I explained to her that if her lab numbers are stable that tomorrow we plan on discharging patient. Per review of previous lab work she repeatedly has alcohol complications. Our conversation this morning got no where despite us telling her that we would not be giving IV dialuaid Currently she is able to walk, tolerating diet Adeel Del Cid
[2017-01-31] MEDS: Magnesium Sulfate 1 gm in D5W 1 GM/100 ML BAG IVPB SCH ×3 (09:30→12:32)
[2017-01-31] MEDS: MULTIVITAMIN IV SCH (18:28)
[2017-01-31] MEDS: FOLIC ACID IV SCH (18:28)
[2017-01-31] MEDS: [UNRECOGNIZED DRUG - OTHER] IV SCH (18:28)
[2017-01-31] MEDS: THIAMINE IV SCH (18:28)
[2017-02-01] MEDS: Lactated Ringer's 1,000 ML IV SCH ×2 (01:45→10:05)
[2017-02-01 07:36] LABS: BASO # 0.1 K/uL (0.0-0.2); BASO % 1.3 % (0.0-2.0); EOS # 0.2 K/uL (0.0-0.7); EOS % 2.7 % (0.0-4.0); LYMPH # 1.1 K/uL (1.0-4.3); LYMPH % 16.9 % (20.0-40.0); MEAN CELL VOLUME 97.8 fL (81.0-99.0); MEAN CORPUSCULAR HEMOGLOBIN 33.4 pg (27.0-31.0); MEAN CORPUSCULAR HGB CONC 34.2 g/dL (33.0-37.0); MEAN PLATELET VOLUME 9.4 fL (7.2-11.7); MONO # 0.6 K/uL (0.0-0.8); RED CELL DISTRIBUTION WIDTH 14.7 % (11.5-14.5); WHITE BLOOD COUNT 6.5 K/uL (4.8-10.8)
[2017-02-01 08:01] LABS: CHLORIDE 97 mmol/L (98-107)
[2017-02-01 08:02] LABS: POTASSIUM 4.4 mmol/L (3.6-5.2); SODIUM 134 mmol/L (132-148)
[2017-02-01 08:04] LABS: ALB/GLOB RATIO 1.2 (1.0-2.1); ALKALINE PHOSPHATASE 65 U/L (38-126); AST/SGOT 76 U/L (14-36); BILIRUBIN,TOTAL 0.8 mg/dL (0.2-1.3); BLOOD UREA NITROGEN 15 mg/dL (7-17); CARBON DIOXIDE 26 mmol/L (22-30); GFR AFRICAN-AMERICAN > 60; GLUCOSE,RANDOM 150 mg/dL (65-105); TOTAL PROTEIN 6.4 g/dL (6.3-8.3)
[2017-02-01 08:05] LABS: ALT/SGPT 53 U/L (9-52); CALCIUM 8.6 mg/dl (8.6-10.4); MAGNESIUM 1.2 mg/dL (1.6-2.3); PHOSPHOROUS 4.7 mg/dL (2.5-4.5)
[2017-02-01 08:22] VITALS: BP 122/85; PULSE 80; TEMP 99; O2SAT 99
[2017-02-01] MEDS: Magnesium Sulfate 1 gm in D5W 1 GM/100 ML BAG IVPB SCH ×3 (09:20→11:49)
[2017-02-01] MEDS ORDERED: Magnesium Hydroxide Susp 30 ml UD PO ONE (10:30)
--- NOTE | 2017-02-01 15:07 | CP.PCM.DIS ---
<Lilian Ngo - Last Filed: 02/01/17 14:58> Provider - Provider Date of Admission: 01/30/17 00:46 Attending physician: Wyatt Castro MD Primary care physician: none Consults: none Time Spent in preparation of Discharge (in minutes): 35 Diagnosis - Discharge Diagnosis (1) Chronic pancreatitis Status: Acute Comment: Patient with chronically eleavted LFTS. f/u [facility] (2) Alcohol abuse Status: Acute Comment: Patient to stop drinking alcohol. MV/thiamine/folic acid. scripts sent to [facility] pharmacy (3) Drug-seeking behavior Status: Acute Hospital Course - Lab Results Lab Results: Most Recent Lab Values WBC 6.5 K/uL (4.8-10.8) 02/01/17 07:18 RBC 3.78 Mil/uL (3.80-5.20) L 02/01/17 07:18 Hgb 12.6 g/dL (11.0-16.0) 02/01/17 07:18 Hct 37.0 % (34.0-47.0) 02/01/17 07:18 MCV 97.8 fL (81.0-99.0) 02/01/17 07:18 MCH 33.4 pg (27.0-31.0) H 02/01/17 07:18 MCHC 34.2 g/dL (33.0-37.0) 02/01/17 07:18 RDW 14.7 % (11.5-14.5) H 02/01/17 07:18 Plt Count 140 K/uL (130-400) 02/01/17 07:18 MPV 9.4 fL (7.2-11.7) 02/01/17 07:18 Neut % (Auto) 70.1 % (50.0-75.0) 02/01/17 07:18 Lymph % (Auto) 16.9 % (20.0-40.0) L 02/01/17 07:18 [place] % (Auto) 9.0 % (0.0-10.0) 02/01/17 07:18 Eos % (Auto) 2.7 % (0.0-4.0) 02/01/17 07:18 Baso % (Auto) 1.3 % (0.0-2.0) 02/01/17 07:18 Neut # 4.5 K/uL (1.8-7.0) 02/01/17 07:18 Lymph # 1.1 K/uL (1.0-4.3) 02/01/17 07:18 [place] # 0.6 K/uL (0.0-0.8) 02/01/17 07:18 Eos # 0.2 K/uL (0.0-0.7) 02/01/17 07:18 Baso # 0.1 K/uL (0.0-0.2) 02/01/17 07:18 PT 10.9 SECONDS (9.7-12.2) 01/29/17 23:55 INR 1.0 01/29/17 23:55 APTT 30 SECONDS (21-34) 01/29/17 23:55 Sodium 134 mmol/L (132-148) 02/01/17 07:18 Potassium 4.4 mmol/L (3.6-5.2) 02/01/17 07:18 Chloride 97 mmol/L (98-107) L 02/01/17 07:18 Carbon Dioxide 26 mmol/L (22-30) 02/01/17 07:18 Anion Gap 16 (10-20) 02/01/17 07:18 BUN 15 mg/dL (7-17) 02/01/17 07:18 Creatinine 0.6 MG/DL (0.7-1.2) L 02/01/17 07:18 Est GFR ( Amer) > 60 02/01/17 07:18 Est GFR (Non-Af Amer) > 60 02/01/17 07:18 Random Glucose 150 mg/dL (65-105) H 02/01/17 07:18 Calcium 8.6 mg/dl (8.6-10.4) 02/01/17 07:18 Phosphorus 4.7 mg/dL (2.5-4.5) H 02/01/17 07:18 Magnesium 1.2 mg/dL (1.6-2.3) L 02/01/17 07:18 Total Bilirubin 0.8 mg/dL (0.2-1.3) 02/01/17 07:18 AST 76 U/L (14-36) H D 02/01/17 07:18 ALT 53 U/L (9-52) H 02/01/17 07:18 Alkaline Phosphatase 65 U/L (38-126) 02/01/17 07:18 Total Protein 6.4 g/dL (6.3-8.3) 02/01/17 07:18 Albumin 3.4 g/dL (3.5-5.0) L 02/01/17 07:18 Globulin 2.9 gm/dL (2.2-3.9) 02/01/17 07:18 Albumin/Globulin Ratio 1.2 (1.0-2.1) 02/01/17 07:18 Lipase 740 U/L (23-300) H 01/29/17 22:58 Urine Color Yellow (YELLOW) 01/29/17 23:39 Urine Clarity Hazy (Clear) 01/29/17 23:39 Urine pH 6.0 (5.0-8.0) 01/29/17 23:39 Ur Specific [place] 1.012 (1.003-1.030) 01/29/17 23:39 Urine Protein 1+ mg/dL (NEGATIVE) H 01/29/17 23:39 Urine Glucose (UA) Normal mg/dL (Normal) 01/29/17 23:39 Urine Ketones Negative mg/dL (NEGATIVE) 01/29/17 23:39 Urine Blood Negative (NEGATIVE) 01/29/17 23:39 Urine Nitrate Negative (NEGATIVE) 01/29/17 23:39 Urine Bilirubin Negative (NEGATIVE) 01/29/17 23:39 Urine Urobilinogen 2.0 mg/dL (0.2-1.0) H 01/29/17 23:39 Ur Leukocyte Esterase Neg Makenzie/uL (Negative) 01/29/17 23:39 Urine WBC (Auto) 2 /hpf (0-5) 01/29/17 23:39 Urine RBC (Auto) < 1 /hpf (0-3) 01/29/17 23:39 Ur Squamous Epith Cells 4 /hpf (0-5) 01/29/17 23:39 Urine Bacteria Occ (<OCC) H 01/29/17 23:39 Hyaline Casts 6-10 /lpf (0-2) H 01/29/17 23:39 Urine HCG, Qual Negative (NEGATIVE) 01/29/17 23:39 Urine Opiates Screen Positive (NEGATIVE) 01/30/17 00:19 Urine Methadone Screen Negative (NEGATIVE) 01/30/17 00:19 Ur Barbiturates Screen Negative (NEGATIVE) 01/30/17 00:19 Ur Phencyclidine Scrn Negative (NEGATIVE) 01/30/17 00:19 Ur Amphetamines Screen Negative (NEGATIVE) 01/30/17 00:19 U Benzodiazepines Scrn Negative (NEGATIVE) 01/30/17 00:19 U Oth Cocaine Metabols Negative (NEGATIVE) 01/30/17 00:19 U Cannabinoids Screen Negative (NEGATIVE) 01/30/17 00:19 Alcohol, Quantitative 126 mg/dl (0-10) H 01/29/17 23:55 - Hospital Course Hospital Course: On admission: Patient is a 51 year old female, with PMHx of alcohol and heroin abuse, chronic pancreatitis, and depression, who presents to [facility] ED with abdominal pain, nausea and vomiting. Patient reports she has this pain "nearly every day" but has been getting worse over the last few days. She describes the pain as intermittent, diffuse abdominal pain, worst in the epigastric/LUQ region, which occasionally radiates to her back, that she rates as 10/10 on the severity scale. Pt denies pain is related to food intake, though she reports being unable to eat for the past few days due this pain, but has been able to drink 1 pint of vodka daily for "many years." Pt admits abdominal pain associated with multiple episodes of vomiting this AM, producing a "yellow/green emesis" without blood. She admits taking her "stomach meds - Protonix, Reglan, Pepcid" daily but with no relief. She admits to 40 lb weight loss in last year. Patient has history of multiple admissions for pancreatitis, alcohol and opioid abuse. Last admitted for pancreatitis in December of 2016. Patient denies depressed mood, but admits to anxiety and feeling "overwhelmed". A. She denies chest pain, palpitations, diarrhea, constipation, SOB, fevers, headaches, dysuria, hematuria, hematochezia, hemoptysis. Denies SI/HI. She would like entry into detox program, if available, once stable. During Hospital Stay: Lipase was 740. Patient was given fluids and made NPO. Diet was advanced as tolerated. Patient was seen to constantly walk around the hallways and take food from the utility room. She was able to tolerate full soft diets without nausea or vomiting on discharge as she ate all of her breakfast this morning. Mg level was low and was replaced with multiple bags of Mag sulfate. Patient also has an alcohol level of 126. She was counselled heavily to stop drinking, She was given Ativan, MV, thiamine, and folic acid. Her BP was controlled during her stay. Of note in every conversation we had with the patient she was asking for specific doses of Dilaudid stated that morphine never does anything for her pain. She was informed that large dangerous amount and that it would not be given. She has been noted to have drug seeking behavior on multiple admissions. She also has never follow up with a primary care doctor after her admissions. Per nursing the patient has been having her boyfriend bring in a suitcase to the hospital and they take many items such as sheets and towels from the room and on the floor. Patient stable for discharge home. Patient is to follow up in the [facility] within one week of discharge. Patient is to call the clinic to make an appointment to get follow up. She will need a referral to pain management. Patient is to take the following medications: 1. Multivitamin one by mouth daily 2. Folic acid 1 mg one by mouth daily 3. Thiamine 100 mg one by mouth daily 4. Colace 100 mg one by mouth twice a day Patient is to stop drinking alcohol. She was counselled about alcohol abuse during this admission. She should return to the emergency room if symptoms return or persist. All instructions explained to the patient and she agrees. Medications were sent to the [facility] pharmacy. This is a summary of the hospital stay. Please refer to the EMR for full details. Discharge Exam - Head Exam Head Exam: ATRAUMATIC, NORMAL INSPECTION - Eye Exam Eye Exam: EOMI, Normal appearance Pupil Exam: PERRL - ENT Exam ENT Exam: Mucous Membranes Moist - Respiratory Exam Respiratory Exam: NORMAL BREATHING PATTERN. absent: Accessory Muscle Use, Respiratory Distress - Cardiovascular Exam Cardiovascular Exam: REGULAR RHYTHM, +S1, +S2 - GI/Abdominal Exam GI & Abdominal Exam: Normal Bowel Sounds, Soft, Tenderness. absent: Distended, Firm, Guarding - Extremities Exam Extremities exam: normal inspection - Back Exam Back exam: NORMAL INSPECTION - Neurological Exam Neurological exam: Alert, CN II-XII Intact, Normal Gait, Oriented x3 - Psychiatric Exam Psychiatric exam: Anxious, Normal Affect, Normal Mood - Skin Skin Exam: Dry, Intact, Normal Color, Warm Discharge Plan - Discharge Medications Prescriptions: cloNIDine 0.1 mg/24 hr [catapres TTS1 0.1 mg/24 hr] 1 patch TD Q7D@1000 #30 patch Docusate [Colace] 100 mg PO BID #60 cap Folic Acid 1 mg PO DAILY #30 tab Thiamine [Vitamin B1 Tab] 100 mg PO DAILY #30 tab - Follow Up Plan Condition: FAIR Disposition: HOME/ ROUTINE Instructions: Clonidine (By mouth), Thiamine (Vitamin B-1) (By mouth), Folic Acid (By mouth), Laxative, Stool Softeners (By mouth), Pancreatitis (DC), Abuse of Alcohol (DC) Additional Instructions: Patient stable for discharge home. Patient is to follow up in the [facility] within one week of discharge. Patient is to call the clinic to make an appointment to get follow up. She will need a referral to pain management. Patient is to take the following medications: 1. Multivitamin one by mouth daily 2. Folic acid 1 mg one by mouth daily 3. Thiamine 100 mg one by mouth daily 4. Colace 100 mg one by mouth twice a day Patient is to stop drinking alcohol. She was counselled about alcohol abuse during this admission. She should return to the emergency room if symptoms return or persist. All instructions explained to the patient and she agrees. Referrals: Comfort Tijerina MD [Staff Provider] - <Adeel Del Cid - Last Filed: 02/02/17 07:29> Provider - Provider Date of Admission: 01/30/17 00:46 Attending physician: Wyatt Castro MD Hospital Course - Lab Results Lab Results: Most Recent Lab Values WBC 6.5 K/uL (4.8-10.8) 02/01/17 07:18 RBC 3.78 Mil/uL (3.80-5.20) L 02/01/17 07:18 Hgb 12.6 g/dL (11.0-16.0) 02/01/17 07:18 Hct 37.0 % (34.0-47.0) 02/01/17 07:18 MCV 97.8 fL (81.0-99.0) 02/01/17 07:18 MCH 33.4 pg (27.0-31.0) H 02/01/17 07:18 MCHC 34.2 g/dL (33.0-37.0) 02/01/17 07:18 RDW 14.7 % (11.5-14.5) H 02/01/17 07:18 Plt Count 140 K/uL (130-400) 02/01/17 07:18 MPV 9.4 fL (7.2-11.7) 02/01/17 07:18 Neut % (Auto) 70.1 % (50.0-75.0) 02/01/17 07:18 Lymph % (Auto) 16.9 % (20.0-40.0) L 02/01/17 07:18 [place] % (Auto) 9.0 % (0.0-10.0) 02/01/17 07:18 Eos % (Auto) 2.7 % (0.0-4.0) 02/01/17 07:18 Baso % (Auto) 1.3 % (0.0-2.0) 02/01/17 07:18 Neut # 4.5 K/uL (1.8-7.0) 02/01/17 07:18 Lymph # 1.1 K/uL (1.0-4.3) 02/01/17 07:18 [place] # 0.6 K/uL (0.0-0.8) 02/01/17 07:18 Eos # 0.2 K/uL (0.0-0.7) 02/01/17 07:18 Baso # 0.1 K/uL (0.0-0.2) 02/01/17 07:18 PT 10.9 SECONDS (9.7-12.2) 01/29/17 23:55 INR 1.0 01/29/17 23:55 APTT 30 SECONDS (21-34) 01/29/17 23:55 Sodium 134 mmol/L (132-148) 02/01/17 07:18 Potassium 4.4 mmol/L (3.6-5.2) 02/01/17 07:18 Chloride 97 mmol/L (98-107) L 02/01/17 07:18 Carbon Dioxide 26 mmol/L (22-30) 02/01/17 07:18 Anion Gap 16 (10-20) 02/01/17 07:18 BUN 15 mg/dL (7-17) 02/01/17 07:18 Creatinine 0.6 MG/DL (0.7-1.2) L 02/01/17 07:18 Est GFR ( Amer) > 60 02/01/17 07:18 Est GFR (Non-Af Amer) > 60 02/01/17 07:18 Random Glucose 150 mg/dL (65-105) H 02/01/17 07:18 Calcium 8.6 mg/dl (8.6-10.4) 02/01/17 07:18 Phosphorus 4.7 mg/dL (2.5-4.5) H 02/01/17 07:18 Magnesium 1.2 mg/dL (1.6-2.3) L 02/01/17 07:18 Total Bilirubin 0.8 mg/dL (0.2-1.3) 02/01/17 07:18 AST 76 U/L (14-36) H D 02/01/17 07:18 ALT 53 U/L (9-52) H 02/01/17 07:18 Alkaline Phosphatase 65 U/L (38-126) 02/01/17 07:18 Total Protein 6.4 g/dL (6.3-8.3) 02/01/17 07:18 Albumin 3.4 g/dL (3.5-5.0) L 02/01/17 07:18 Globulin 2.9 gm/dL (2.2-3.9) 02/01/17 07:18 Albumin/Globulin Ratio 1.2 (1.0-2.1) 02/01/17 07:18 Lipase 740 U/L (23-300) H 01/29/17 22:58 Urine Color Yellow (YELLOW) 01/29/17 23:39 Urine Clarity Hazy (Clear) 01/29/17 23:39 Urine pH 6.0 (5.0-8.0) 01/29/17 23:39 Ur Specific [place] 1.012 (1.003-1.030) 01/29/17 23:39 Urine Protein 1+ mg/dL (NEGATIVE) H 01/29/17 23:39 Urine Glucose (UA) Normal mg/dL (Normal) 01/29/17 23:39 Urine Ketones Negative mg/dL (NEGATIVE) 01/29/17 23:39 Urine Blood Negative (NEGATIVE) 01/29/17 23:39 Urine Nitrate Negative (NEGATIVE) 01/29/17 23:39 Urine Bilirubin Negative (NEGATIVE) 01/29/17 23:39 Urine Urobilinogen 2.0 mg/dL (0.2-1.0) H 01/29/17 23:39 Ur Leukocyte Esterase Neg [place]/uL (Negative) 01/29/17 23:39 Urine WBC (Auto) 2 /hpf (0-5) 01/29/17 23:39 Urine RBC (Auto) < 1 /hpf (0-3) 01/29/17 23:39 Ur Squamous Epith Cells 4 /hpf (0-5) 01/29/17 23:39 Urine Bacteria Occ (<OCC) H 01/29/17 23:39 Hyaline Casts 6-10 /lpf (0-2) H 01/29/17 23:39 Urine HCG, Qual Negative (NEGATIVE) 01/29/17 23:39 Urine Opiates Screen Positive (NEGATIVE) 01/30/17 00:19 Urine Methadone Screen Negative (NEGATIVE) 01/30/17 00:19 Ur Barbiturates Screen Negative (NEGATIVE) 01/30/17 00:19 Ur Phencyclidine Scrn Negative (NEGATIVE) 01/30/17 00:19 Ur Amphetamines Screen Negative (NEGATIVE) 01/30/17 00:19 U Benzodiazepines Scrn Negative (NEGATIVE) 01/30/17 00:19 U Oth Cocaine Metabols Negative (NEGATIVE) 01/30/17 00:19 U Cannabinoids Screen Negative (NEGATIVE) 01/30/17 00:19 Alcohol, Quantitative 126 mg/dl (0-10) H 01/29/17 23:55 Attending/Attestation - Attestation I have personally seen and examined this patient.: Yes I have fully participated in the care of the patient.: Yes I have reviewed all pertinent clinical information, including history, physical exam and plan: Yes Notes (Text): Medical Attending: Patient was seen and examined by me. Agree with the above note by the resident. It should be noted that this patient has either a family member or friend who comes to the room every day with a large luggage case. I was just notified by nursing that they are concerned that this person who comes into the hospital is either taking items. However this is unclear however they noticed that the luggage keeps coming in every single day and they're concerned about the contents that could be in this luggage. The patient has, as we have documented in the past asked repeatedly for IV dilaudid. And we have told him repeatedly we will not be doing this. The patient was walking very well when she was discharged. Throughout this admission she's been complaining of a lot of pain - however we observed her eating as well as walking very quickly she did not need any assistance whatsoever. thank you Adeel Del Cid
== END 2017-02-01 13:42 | disposition home or self-care (01) | DRG 204 ==
LOC: C.ER 21:58 → C.9E 01-30 00:46 → C.5T 01-30 03:04 → C.3T 01-30 16:58
PROVIDERS: ADMIT Family Medicine; ATTEND Family Medicine
PROC: HZ2ZZZZ Detoxification Services for Substance Abuse Treatment (ICD-10-PCS; principal; 2017-01-30)
DX: K85.90 Acute pancreatitis without necrosis or infection, unspecified (principal); F10.230 Alcohol dependence with withdrawal, uncomplicated; F11.10 Opioid abuse, uncomplicated; E87.6 Hypokalemia; K86.1 Other chronic pancreatitis; F32.9 Major depressive disorder, single episode, unspecified; F17.210 Nicotine dependence, cigarettes, uncomplicated; Z76.5 Malingerer [conscious simulation]; Y90.6 Blood alcohol level of 120-199 mg/100 ml

== ENCOUNTER 2017-02-23 18:14 | Emergency (ER) | payer OTHER ==
[2017-02-23 18:14] VITALS: BMI 18.2
[2017-02-23] MEDS ORDERED: Sodium Chloride 0.9% 1,000 ML IV ONE (18:31)
[2017-02-23] MEDS ORDERED: HYDROmorphone 1 mg/ml ISec IVP STA (18:32)
[2017-02-23] MEDS: Sodium Chloride 0.9% 1,000 ML IV ONE ×2 (18:32→19:43)
[2017-02-23] MEDS ORDERED: Sodium Chloride 0.9% 1,000 ML ONE ×2 (18:34→19:32)
[2017-02-23] MEDS ORDERED: HYDROmorphone 1 mg/ml ISec ONE (18:37)
--- NOTE | 2017-02-23 18:38 | C.PDOC ---
History Of Present Illness Patient is a 51 year old female with a PMH of alcoholism, pancreatitis and left kidney mass who presents to the ED today c/o abd pain. Pt states that this morning she was developing "the shakes" because she was going through alcohol withdrawal. In order to stop the shakes, she took a "shot" of alcohol. After drinking the alcohol she developed 10 out of 10 abdominal pain in the mid- epigastric and LUQ region that is sharp in nature. She says this pain feels just like the last episode of pancreatitis she had a couple of months ago. She also had several episodes of vomiting. No fever. No additional complaints at this time. PMD: None Time Seen by Provider: 02/23/17 18:25 Chief Complaint (Nursing): Abdominal Pain History Per: Patient History/Exam Limitations: no limitations Past Medical History Reviewed: Historical Data, Nursing Documentation, Vital Signs Vital Signs: Last Vital Signs Temp 98.0 F 02/23/17 18:21 Pulse 111 H 02/23/17 18:51 Resp 21 02/23/17 18:51 BP 182/115 H 02/23/17 18:51 Pulse Ox 98 02/23/17 18:51 - Medical History PMH: Anxiety (denies), Bipolar Disorder (denies), Depression (denies), Diverticulitis, Gastritis, Gastrointestinal Ulcer, GERD, Kidney Stones, Pancreatitis, Chronic Pain (+Chronic lower back pain) Denies: Diabetes, Hepatitis, HIV, HTN (denies), Chronic Kidney Disease, Seizures, Sexually Transmitted Disease Surgical History: Endoscopy (Colonoscopy), Tonsillectomy - [facility] Procedures DETOXIFICATION SERVICES FOR SUBSTANCE ABUSE TREATMENT (01/30/17) EXCISION OF STOMACH, ENDO, DIAGN (06/01/16) GROUP MANAGER IMMUNOLOGY FOR SUBSTANCE ABUSE TREATMENT, PSYCHOEDUCATION (10/17/16) GROUP PSYCHOTHERAPY (01/26/16) INDIV MANAGER IMMUNOLOGY FOR SUBSTANCE ABUSE TREATMENT, PSYCHOEDUCATION (10/17/16) INDIV MANAGER IMMUNOLOGY FOR SUBSTANCE ABUSE, COGNITIVE BEHAVIORAL (10/17/16) INDIV PSYCHOTHERAPY FOR SUBSTANCE ABUSE TREATMENT, SUPPORT (11/27/16) INDIV PSYCHOTHERAPY FOR SUBSTANCE ABUSE, COGNITIV BEHAVIORAL (11/27/16) INDIV PSYCHOTHERAPY FOR SUBSTANCE ABUSE, PSYCHOEDUCATION (10/17/16) INDIVIDUAL PSYCHOTHERAPY, SUPPORTIVE (01/26/16) INJECT/INFUSE NEC (04/10/15) MEDS MGMT FOR SUBSTANCE ABUSE TREATMENT, METHADONE MAINT (01/26/16) Family History: States: Other Other Family History: cancer - Social History Hx Tobacco Use: Yes Hx Alcohol Use: Yes Hx Substance Use: No (pt denies) - Immunization History Hx Tetanus Toxoid Vaccination: Yes Hx Influenza Vaccination: Yes (10/2016) Hx Pneumococcal Vaccination: Yes (10/2016) Review Of Systems Except As Marked, All Systems Reviewed And Found Negative. Constitutional: Negative for: Fever Cardiovascular: Negative for: Chest Pain Respiratory: Negative for: Shortness of Breath Gastrointestinal: Positive for: Nausea, Vomiting, Abdominal Pain Neurological: Negative for: Weakness Psych: Positive for: Anxiety Physical Exam - Physical Exam Appears: In Acute Distress (vomiting and appears to be in significant pain) Skin: Warm Head: Atraumatic Eye(s): bilateral: Normal Inspection, EOMI Ear(s): Bilateral: Normal Nose: Normal Oral Mucosa: Dry Lips: Normal Appearing Neck: Normal Lymphatic: Deferred Chest: Symmetrical Cardiovascular: Rhythm Regular Respiratory: Normal Breath Sounds, No Rales, No Rhonchi, No Wheezing Gastrointestinal/Abdominal: Bowel Sounds, Tenderness (midepigastric), No Guarding, No Rebound Rectal: Deferred Back: Normal Inspection Extremity: Normal ROM Extremity: Bilateral: Atraumatic, Normal ROM Pulses: Left Radial: Normal, Right Radial: Normal Neurological/Psych: Oriented x3 ED Course And Treatment - Laboratory Results Result Diagrams: 02/23/17 18:36 02/23/17 18:36 O2 Sat by Pulse Oximetry: 98 Medical Decision Making Medical Decision Making: Initial Impression: Abdominal pain--likely pancreatitis Initial Plan: Will hydrate, give pain medication, check labs, give anti-emetic Progress note(s): 6:46 PM - Pain is still a "10". Additional pain medication has been ordered. Disposition - Disposition Disposition Time: 19:00 Condition: FAIR - POA Present On Arrival: None - Clinical Impression Clinical Impression: Pancreatitis, Alcoholism Physician Patient Turnover Patient Signed Over To: Cricket Shin Handoff Comments: Reassess patient; consider CT to determine if pancreatitis.
[2017-02-23 18:42] LABS: BASO # 0.1 K/uL (0.0-0.2); BASO % 0.7 % (0.0-2.0); EOS % 0.2 % (0.0-4.0); HEMATOCRIT 43.1 % (34.0-47.0); LYMPH % 11.6 % (20.0-40.0); MEAN CELL VOLUME 98.5 fL (81.0-99.0); MEAN CORPUSCULAR HEMOGLOBIN 33.9 pg (27.0-31.0); MEAN CORPUSCULAR HGB CONC 34.4 g/dL (33.0-37.0); MEAN PLATELET VOLUME 8.7 fL (7.2-11.7); MONO # 0.5 K/uL (0.0-0.8); MONO % 6.2 % (0.0-10.0); RED CELL DISTRIBUTION WIDTH 13.7 % (11.5-14.5); WHITE BLOOD COUNT 8.5 K/uL (4.8-10.8)
[2017-02-23 18:49] LABS: CHLORIDE 92 mmol/L (98-107)
[2017-02-23 18:50] LABS: POTASSIUM 3.1 mmol/L (3.6-5.2); SODIUM 141 mmol/L (132-148)
[2017-02-23 18:52] LABS: ALB/GLOB RATIO 1.3 (1.0-2.1); AST/SGOT 172 U/L (14-36); BILIRUBIN,TOTAL 1.7 mg/dL (0.2-1.3); CARBON DIOXIDE 26 mmol/L (22-30); GFR AFRICAN-AMERICAN > 60; TOTAL PROTEIN 8.3 g/dL (6.3-8.3)
[2017-02-23 18:53] LABS: ALKALINE PHOSPHATASE 108 U/L (38-126); ALT/SGPT 101 U/L (9-52); BLOOD UREA NITROGEN 13 mg/dL (7-17); GLUCOSE,RANDOM 127 mg/dL (65-105)
[2017-02-23 18:54] LABS: ALCOHOL SERUM 93 mg/dl (0-10)
[2017-02-23 19:34] LABS: RBC URINE 6 /hpf (0-3); URINE BACTERIA FEW (<OCC); URINE BILIRUBIN NEGATIVE (NEGATIVE); URINE BLOOD NEGATIVE (NEGATIVE); URINE COLOR Amber (YELLOW); URINE GLUCOSE (UA) NORMAL (Normal); URINE KETONE 2+ mg/dL (NEGATIVE); URINE LEUKOCYTE ESTERASE 1+ Leu/uL (Negative); URINE PROTEIN 2+ mg/dL (NEGATIVE); WBC URINE 20 /hpf (0-5)
--- NOTE | 2017-02-23 20:53 | CT ---
EXAM: CT Abdomen and Pelvis With Intravenous Contrast CLINICAL HISTORY: 51 years old, female; Condition or disease; Intestinal condition and pancreatic condition; Pancreatitis; Other: Alcohol abuse; Additional info: ETOH abuse, HX of pancreatitis, abd pain TECHNIQUE: Axial computed tomography images of the abdomen and pelvis with intravenous contrast. This CT exam was performed using one or more of the following dose reduction techniques: automated exposure control, adjustment of the mA and/or kV according to patient size, and/or use of iterative reconstruction technique. Coronal and sagittal reformatted images were created and reviewed. CONTRAST: 100 mL of visipaque 320 administered intravenously. EXAM DATE/TIME: Exam ordered 02/23/2017 7:19 PM COMPARISON: CT - ABD PELVIS PO IV CONTRAST 11/27/2016 10:48:12 PM FINDINGS: Lower thorax: No acute findings. ABDOMEN: Liver: The liver is low in density consistent with fatty infiltration. Gallbladder and bile ducts: Unremarkable. No calcified stones. No ductal dilation. Pancreas: The pancreas is normal in size. There no peripancreatic inflammatory changes. No pancreatic calcifications are seen. No pancreatic ductal dilatation is identified. Spleen: Unremarkable. No splenomegaly. Adrenals: Unremarkable. No Kidneys and ureters: There is a 1.2 cm low-density lesion seen in the upper pole of the left kidney with a density measurement of 63H. There is a suggestion of a second 1.2 cm lesion in the midportion of the left kidney with a density measurement of 80 H. A nonobstructing 3 mm calcification is seen in the upper pole of the right kidney. A 5 mm low density lesion is seen in the midportion of the right kidney is Stomach and bowel: There are scattered colonic diverticula. No obstruction. No mucosal thickening. Appendix: No findings to suggest acute appendicitis. PELVIS: Bladder: A coarse calcification is noted the lateral to the expected location of the urethra. Reproductive: Unremarkable as visualized. ABDOMEN and PELVIS: Intraperitoneal space: Unremarkable. No free air. No significant fluid collection. Bones/joints: No acute fracture. No dislocation. Soft tissues: Unremarkable. Vasculature: Unremarkable. No abdominal aortic aneurysm. Lymph nodes: Unremarkable. No enlarged lymph nodes. IMPRESSION: 1. No CT evidence of pancreatitis 2. Hepatic steatosis. 3. 2 hyperdense left renal lesions. These are unchanged from the most recent CT scan. A renal ultrasound performed 09/12/2016 identified a cyst in the midportion of the left kidney. The hyperdense lesion in the upper pole left kidney however was not evaluated on ultrasound. Recommend CT or MRI follow-up in 6 months. 4. Scattered colonic diverticula. 5. Right-sided periurethral coarse calcification. This could be a calcification within a [place]'s gland.
[2017-02-23 21:15] VITALS: BP 118/76; PULSE 84; RESP 18; TEMP 97.9; O2SAT 96
--- NOTE | 2017-02-24 11:14 | CARD ---
APPROVED REPORT EKG Measurement Heart [id number] <Conclusion> Normal sinus rhythm Normal ECG
== END 2017-02-23 21:19 | disposition home or self-care (01) ==
LOC: C.ER 18:14
DX: K85.90 Acute pancreatitis without necrosis or infection, unspecified (principal); F10.20 Alcohol dependence, uncomplicated; Y90.4 Blood alcohol level of 80-99 mg/100 ml
CPT/HCPCS: 74177; 80053; 81001; 83690; 84703; 85025; 85610; 85730; 93005; 96361; 96374; 96375; 96376; 99285; G0480; J1170; J2405; J2765; J3480; J7040

== ENCOUNTER 2017-07-02 17:00 | Emergency (ER) | payer MEDICAID ==
[2017-07-02 17:03] VITALS: BMI 18.2
[2017-07-02] MEDS ORDERED: Sodium Chloride 0.9% 1,000 ML IV ONE (17:30)
[2017-07-02] MEDS ORDERED: Sodium Chloride 0.9% 1,000 ML ONE (17:52)
[2017-07-02 18:20] LABS: RBC URINE 12 /hpf (0-3); URINE BACTERIA FEW (<OCC); URINE BILIRUBIN NEGATIVE (NEGATIVE); URINE BLOOD 1+ (NEGATIVE); URINE COLOR Yellow (YELLOW); URINE GLUCOSE (UA) NORMAL (Normal); URINE KETONE NEGATIVE (NEGATIVE); URINE LEUKOCYTE ESTERASE 1+ Leu/uL (Negative); URINE PROTEIN NEGATIVE (NEGATIVE); URINE UROBILINOGEN NORMAL mg/dL (0.2-1.0); WBC URINE 12 /hpf (0-5)
[2017-07-02 18:54] LABS: BASO # 0.1 K/uL (0.0-0.2); BASO % 1.3 % (0.0-2.0); EOS # 0.2 K/uL (0.0-0.7); EOS % 2.4 % (0.0-4.0); HEMATOCRIT 44.3 % (34.0-47.0); LYMPH # 2.1 K/uL (1.0-4.3); LYMPH % 29.2 % (20.0-40.0); MEAN CELL VOLUME 103.7 fL (81.0-99.0); MEAN CORPUSCULAR HGB CONC 33.7 g/dL (33.0-37.0); MONO # 0.4 K/uL (0.0-0.8); RED CELL DISTRIBUTION WIDTH 13.4 % (11.5-14.5)
[2017-07-02 19:03] LABS: CHLORIDE 100 mmol/L (98-107)
[2017-07-02 19:04] LABS: POTASSIUM 3.2 mmol/L (3.6-5.2); SODIUM 146 mmol/L (132-148)
[2017-07-02 19:06] LABS: ALB/GLOB RATIO 1.4 (1.0-2.1); ALKALINE PHOSPHATASE 114 U/L (38-126); ALT/SGPT 105 U/L (9-52); AST/SGOT 203 U/L (14-36); BILIRUBIN,TOTAL 0.8 mg/dL (0.2-1.3); BLOOD UREA NITROGEN 9 mg/dL (7-17); CARBON DIOXIDE 27 mmol/L (22-30); GFR AFRICAN-AMERICAN > 60; INR 0.9; TOTAL PROTEIN 7.9 g/dL (6.3-8.3)
[2017-07-02 19:07] LABS: CALCIUM 9.5 mg/dl (8.6-10.4); GLUCOSE,RANDOM 90 mg/dL (65-105); MAGNESIUM 1.4 mg/dL (1.6-2.3)
[2017-07-02 19:17] VITALS: TEMP 98
[2017-07-02] MEDS ORDERED: DiphenhydrAMINE 50 mg/ml Inj IVP STA (19:20)
[2017-07-02 19:22] LABS: ALCOHOL SERUM 340 mg/dl (0-10)
[2017-07-02] MEDS ORDERED: Multivitamin (MVI) 10 ML, Thiamine 100 MG, Folic Acid 1 MG in Sodium Chloride 0.9% 1,00... IV STA (19:25)
[2017-07-02] MEDS ORDERED: DiphenhydrAMINE 50 mg/ml Inj ONE (19:28)
[2017-07-02] MEDS ORDERED: Magnesium Sulfate 1 gm in D5W 1 GM/100 ML BAG IVPB ONE ×2 (19:29→20:00)
--- NOTE | 2017-07-02 22:01 | C.PDOC ---
Time Seen by Provider: 07/02/17 17:05 Chief Complaint (Nursing): Abdominal Pain History Per: Patient History/Exam Limitations: intoxication Onset/Duration Of Symptoms: Days (chronic) Current Symptoms Are (Timing): Still Present Context: Other (Alcohol abuse) Severity: Moderate Location Of Pain/Discomfort: Epigastric Quality Of Discomfort: Unable To Describe, "Pain" Associated Symptoms: Nausea Alleviating Factors: None Recent travel outside of the [place]: No Additional History Per: Prior Records Past Medical History Reviewed: Historical Data, Nursing Documentation, Vital Signs Vital Signs: Last Vital Signs Temp 98 F 07/02/17 19:16 Pulse 82 07/02/17 22:41 Resp 16 07/02/17 22:41 BP 105/67 07/02/17 22:41 Pulse Ox 96 07/02/17 22:41 - Medical History PMH: Anxiety (denies), Bipolar Disorder (denies), Depression (denies), Diverticulitis, Gastritis, Gastrointestinal Ulcer, GERD, Kidney Stones, Pancreatitis, Chronic Pain (+Chronic lower back pain) Surgical History: Endoscopy (Colonoscopy), Tonsillectomy - [facility] Procedures DETOXIFICATION SERVICES FOR SUBSTANCE ABUSE TREATMENT (01/30/17) EXCISION OF STOMACH, ENDO, DIAGN (06/01/16) GROUP MATHEMATICS TECHNICIAN FOR SUBSTANCE ABUSE TREATMENT, PSYCHOEDUCATION (10/17/16) GROUP PSYCHOTHERAPY (01/26/16) INDIV MATHEMATICS TECHNICIAN FOR SUBSTANCE ABUSE TREATMENT, PSYCHOEDUCATION (10/17/16) INDIV MATHEMATICS TECHNICIAN FOR SUBSTANCE ABUSE, COGNITIVE BEHAVIORAL (10/17/16) INDIV PSYCHOTHERAPY FOR SUBSTANCE ABUSE TREATMENT, SUPPORT (11/27/16) INDIV PSYCHOTHERAPY FOR SUBSTANCE ABUSE, COGNITIV BEHAVIORAL (11/27/16) INDIV PSYCHOTHERAPY FOR SUBSTANCE ABUSE, PSYCHOEDUCATION (10/17/16) INDIVIDUAL PSYCHOTHERAPY, SUPPORTIVE (01/26/16) INJECT/INFUSE NEC (04/10/15) MEDS MGMT FOR SUBSTANCE ABUSE TREATMENT, METHADONE MAINT (01/26/16) Family History: States: Unknown Family Hx - Social History Hx Tobacco Use: Yes Hx Alcohol Use: Yes Hx Substance Use: No - Immunization History Hx Tetanus Toxoid Vaccination: Yes Hx Influenza Vaccination: Yes Hx Pneumococcal Vaccination: Yes Review Of Systems Constitutional: Negative for: Fever Cardiovascular: Negative for: Chest Pain Respiratory: Negative for: Shortness of Breath Gastrointestinal: Positive for: Nausea, Vomiting, Abdominal Pain Genitourinary: Negative for: Dysuria Musculoskeletal: Positive for: Back Pain. Negative for: Neck Pain Skin: Negative for: Rash Neurological: Negative for: Weakness, Numbness, Seizures Psych: Negative for: Suicidal ideation Physical Exam - Physical Exam Appears: No Acute Distress, Other (AOB, intoxicated) Skin: Normal Color, Warm, Dry Head: Atraumatic, Normacephalic Eye(s): bilateral: PERRL, EOMI Neck: Normal ROM, No Midline Cervical Tenderness, No Step Off Deformity, Supple Cardiovascular: Rhythm Regular Respiratory: Normal Breath Sounds, No Accessory Muscle Use Gastrointestinal/Abdominal: Soft, Tenderness (nonspecific), No Distention, No Guarding, No Rebound Extremity: Normal ROM Neurological/Psych: No Normal Speech (slurred), Normal Motor, Normal Sensation, Slow To Respond With Command ED Course And Treatment - Laboratory Results Result Diagrams: 07/02/17 18:40 07/02/17 18:40 Interpretation Of Abnormal: Elevated alcohol level Urine POC: Negative O2 Sat by Pulse Oximetry: 98 Pulse Ox Interpretation: Normal Disposition - Disposition Disposition Time: 23:25 Condition: FAIR - Clinical Impression Clinical Impression: Alcohol intoxication, Abdominal pain Physician Patient Turnover Patient Signed Over To: Geovany Byrne DO Handoff Comments: to reassess pt once sober.
[2017-07-02 22:16] VITALS: RESP 16
[2017-07-02 22:41] VITALS: BP 105/67
[2017-07-03 03:07] VITALS: PULSE 76; O2SAT 99
== END 2017-07-03 03:07 | disposition home or self-care (01) ==
LOC: C.ER 17:00
DX: F10.129 Alcohol abuse with intoxication, unspecified (principal); Y90.8 Blood alcohol level of 240 mg/100 ml or more; R10.13 Epigastric pain
CPT/HCPCS: 80053; 80320; 80324; 80345; 80346; 80349; 80353; 80358; 80361; 81001; 83690; 83735; 83992; 84703; 85025; 85610; 85730; 96361; 96374; 96375; 99285; C9113; J1200; J2765; J3411; J3475; J7040